=== PATIENT | male | born 1955 | race Caucasian/White ===

== ENCOUNTER 2024-11-24 11:22 | Inpatient (IN) | payer MEDICARE, SELFPAY ==
[2024-11-24] VITALS (7 sets, daily range): BP systolic 130–164; BP diastolic 67–89; PULSE 67–236; RESP 16–31; TEMP 36.4–37.1; O2SAT 95–97
--- NOTE | ~2024-11-24 | NM_ITS ---
EXAMINATION: NM charles stress w perfusion DATE: 11/26/2024 12:15 INDICATION: Elevated troponin TECHNIQUE: Rest images were obtained following intravenous administration of 9.9 mCi Tc99m tetrofosmi n (Myoview). The patient was infused intravenously with Lexiscan (Regadenoson). Then, 31.2 mCi Tc99m tetrofosmin (Myoview) was administered intravenously, and stress images were obtained. Data was recon structed into short axis and horizontal and vertical long axis SPECT images. Gated SPECT images were also obtained. COMPARISON: None. FINDINGS: There is no definite reversible or fixed perfusion abnormality to suggest ischemia or infar ction. There is normal left ventricular chamber size, wall motion and ejection fraction. Left ventr icular ejection fraction measures >70%. IMPRESSION: 1. Normal myocardial perfusion at rest and during stress. 2. Left ventricular ejection fraction measuring >70%. Reviewed, dictated and finalized at location B. RY MIXER
--- NOTE | ~2024-11-24 | CT_ITS ---
Non-contrast Head CT History: Status post fall Technique: Axial non-contrast imaging of the brain was performed. Dose reduction technique was used on this scan by utilizing automated exposure control and iterative reconstruction technique. The dose -length product (DLP) was 605.33 mGy-cm. Findings: There is no evidence of intracranial hemorrhage, mass lesion, or acute infarct. Brain par enchyma appears normal. The ventricles and subarachnoid spaces are normal in size. The calvarium ap pears normal. The visualized paranasal sinuses and mastoid air cells are clear. Impression: No significant abnormality seen. Reviewed, dictated and finalized at location . 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
--- NOTE | ~2024-11-24 | CT_ITS ---
Noncontrast CT scan of the cervical spine Technique: Multiple contiguous axial [address] images of the cervical spine were obtained and rec onstructed in 2D sagittal and coronal planes on the acquisition scanner. Dose reduction technique was used on this scan by utilizing automated exposure control, adjustment of the mA and/or kV according to patient size. The dose-length product (DLP) was 443.93 mGy-cm. Clinical History: Pain Findings: No fractures or dislocations. There is minimal reversal normal cervical lordosis. There is moderate to advanced degenerative disc narrowing at C4-C5, C5-C6, and C6-C7. There is scattered face t joint degenerative changes throughout the cervical spine. Probable minimal right neural foraminal n arrowing at C4-C5. There is bilateral neural foraminal narrowing at C5-C6, right worse than left. The re is bilateral neural foraminal narrowing at C6-C7. No prevertebral soft tissue swelling. Impression: No fracture or subluxation of the cervical spine. Degenerative change, as above. Reviewed, dictated and finalized at location . 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 Degenerative change, as above.
--- NOTE | ~2024-11-24 | MR_ITS ---
EXAMINATION: MR brain/brain stem wo con DATE: 11/26/2024 07:23 INDICATION: Altered mental status. TECHNIQUE: Magnetic resonance imaging (MRI) of the brain and brainstem was performed without intraven ous contrast. COMPARISON: Head CT 11/24/2024 FINDINGS: There is an empty sella. There is no intracranial hemorrhage, acute infarction, or abnormal intracranial mass lesion. The ventricles are normal in size. The paranasal sinuses are clear. The or bits are normal. There are trace bilateral mastoid effusions. IMPRESSION: 1. Empty sella. Reviewed, dictated and finalized at location [] ERNMAKER BENCH IMPRESSION: 1. Empty sella.
--- NOTE | ~2024-11-24 | XR_ITS ---
EXAMINATION: XR chest 1V Exam Date/Time: 11/24/2024 14:50 SILVERER HISTORY: AMS Comparison: None. RESULT: Lines, tubes, and devices: None. Lungs and pleura: Senescent change. Streaky bibasilar opacities, greater in the left lower lung. Mil d left costophrenic angle blunting. Cardiomediastinal silhouette: Stable. Other: No acute osseous or upper abdominal finding. IMPRESSION: Subsegmental bibasilar atelectasis/consolidation. Possible small left pleural effusion. Reviewed, dictated and finalized at location K. ERER IMPRESSION: Subsegmental bibasilar atelectasis/consolidation. Possible small left pleural e ffusion.
--- NOTE | 2024-11-24 13:27 | ECG_ITS ---
Test Date: 2024-11-24 14:27:02 Measurements Intervals [place] Rate: 78 P: 40 [place]: 144 QRS: -49 QRSD: 102 T: 32 QT: 336 QTc: 384 Interpretive Statements SINUS RHYTHM WITH OCCASIONAL VENTRICULAR PREMATURE COMPLEXES MARKED LEFT AXIS DEVIATION [QRS AXIS < -30] MINIMAL VOLTAGE CRITERIA FOR LVH, CONSIDER NORMAL VARIANT [MEETS CRITERIA IN ONE OF: R(aVL), S(V1), R(V5), R(V5/V6)+S(V1)] POSSIBLE ANTERIOR MYOCARDIAL INFARCTION , PROBABLY OLD [30 ms Q WAVE IN V3/V4, OR R < 0.2 mV IN V4] No previous ECG available for comparison Electronically Signed On 11-24-2024 22:42:03 [employer] by Ayleen Bradford M.D.
--- NOTE | 2024-11-24 13:27 | ED_ITS ---
HPI - Fall General Chief Complaint: Fall <Ann Thompson PA-C - Last Filed: 11/26/24 18:19> Stated Complaint: GLF, hit head no blood thinner <Ann Thompson PA-C - Last Filed: 11/26/24 18:19> Time Seen by Provider: 11/24/24 14:42 <Ann Thompson PA-C - Last Filed: 11/26/24 18:19> Focused HPI: 69 y/o Male presents emergency department with son at bedside for altered mental status and ground level fall. Patient is unable to provide history secondary to confusion. Patient's son at bedside states the patient went to local urgent care few days ago for a dental infection. He was started on antibiotics and naproxen. Since then he has become increasingly more confused and has had several falls. His last fall was this morning around 10:00 a.m. when he fell in his head and obtained a laceration to the left posterior scalp. He did not lose consciousness. He is not anticoagulated. The patient denies any complaints including headache, vision changes, focal numbness or weakness, chest pain or shortness of breath, cough or congestion, fever, dysuria or hematuria, abdominal pain GENERAL: Well-appearing, well-nourished, and in no acute distress. HEAD: Less than 0.5 cm laceration to the left posterior scalp, no active bleeding. CHEST: Clear to auscultation. ?No respiratory distress. HEART: Regular rate and rhythm.? NEURO: ?Alert and oriented x3. Patient screened in triage and initial orders placed.? ?Additional care and disposition to be based upon?diagnostic testing and treatment. <Ann Thompson PA-C - Last Filed: 11/26/24 18:19> History of Present Illness HPI Narrative: Agree with HPI. Currently thinks he is at a dental office. No history of dementia. Abrasion posterior head. No additional complaints other than poor oral intake since going the dentist and recent fall. <Arjun Vila MD - Last Filed: 11/24/24 21:11> Related Data Home Medications: Home Medications ?Medication ?Instructions ?Recorded ?Confirmed ?Last Taken ?Type acetaminophen 650 mg 650 mg PO DAILY 11/25/24 11/25/24 11/23/24 History tablet,extended release (Arthritis Pain Relief (acetaminophen) ER) amoxicillin 875 mg tablet 875 mg PO Q12H 11/25/24 11/25/24 11/23/24 14:00 History payazeta-pnxg-[id number] acid 400 1 tablet PO DAILY 11/25/24 11/25/24 11/23/24 History mcg-lycopene 300 mcg-ginkgo 120 mg tablet (One-A-Day Men's 50 Plus (with ginkgo)) <Ann Thompson PA-C - Last Filed: 11/26/24 18:19> Allergies/Adverse Reactions: Allergies Allergy/AdvReac Type Severity Reaction Status Date / Time No Known Allergies Allergy Verified 11/24/24 11:26 <Ann Thompson PA-C - Last Filed: 11/26/24 18:19> Review of Systems 2 Review of Systems: ROS unobtainable: Yes unobtainable due to mental status <Arjun Vila MD - Last Filed: 11/24/24 21:11> [facility] Past Medical History Medical History: Medical History (Updated 11/25/24 @ 18:02 by Juancho Bullard MD) Healthy adult male <Ann Thompson PA-C - Last Filed: 11/26/24 18:19> Surgical History Surgical History: Surgical History (Updated 11/24/24 @ 21:08 by Arjun Vila MD) No history of previous surgery <Ann Thompson PA-C - Last Filed: 11/26/24 18:19> Family History Family History: Family History (Updated 11/25/24 @ 03:07 by Ruba Vallecilol RN) Mother Lung cancer Father Congestive heart failure <Ann Thompson PA-C - Last Filed: 11/26/24 18:19> Social History Social History: Social History Smoking packs per day: 1 Smoking cigarettes per day: 20.0 Years smoked: 50 Smoking pack-years: 50.00 Smoking status: Current every day smoker Tobacco type: cigarettes Alcohol intake: never Substance use: never Do You Feel Safe in your Home?: Yes Lack of Transportation: No Lack of Food: Never True Current Housing: I Have Housing Concerned About Future Housing: No Difficulty Paying Gas/Electric Bills: No Difficulty Paying for Meds: No Currently Unemployed: No Education: Associate Degree Difficulty w/ Childcare or Family Care: No Spiritual care concerns: No <Ann Thompson PA-C - Last Filed: 11/26/24 18:19> Exam 2 Narrative: GENERAL: Well-appearing, well-nourished, and in no acute distress. HEAD: Normocephalic, abrasion posterior scalp. ENT: Mucous membranes moist. NECK: Supple. CHEST: Clear to auscultation. No respiratory distress. HEART: Regular rate and rhythm. Normal peripheral pulses. ABDOMEN: Soft, nontender, nondistended. EXTREMITIES: Normal range of motion. No edema. SKIN: Warm, dry, no rash. NEURO: Alert and oriented x2. PSYCH: Normal mood and affect. <Arjun Vila MD - Last Filed: 11/24/24 21:11> Course Course Emergency Course: Mental status improving with IV fluid. Troponin elevated. Admit for observation. <Arjun Vila MD - Last Filed: 11/24/24 21:11> Vital Signs Vital signs: Vital Signs Temperature 97.6 F 11/24/24 11:25 Pulse Rate 90 11/24/24 11:25 Respiratory Rate 16 11/24/24 11:25 Blood Pressure 145/69 H 11/24/24 11:25 Pulse Oximetry 97 11/24/24 11:25 Temperature 97.7 F 11/26/24 12:00 Pulse Rate 58 L 11/26/24 14:00 Respiratory Rate 26 H 11/26/24 12:00 Blood Pressure 138/61 11/26/24 12:00 Pulse Oximetry 90 11/26/24 12:00 Oxygen Delivery Room Air 11/26/24 12:00 <Ann Thompson PA-C - Last Filed: 11/26/24 18:19> Vital Signs Temperature 97.6 F 11/24/24 11:25 Pulse Rate 90 11/24/24 11:25 Respiratory Rate 16 11/24/24 11:25 Blood Pressure 145/69 H 11/24/24 11:25 Pulse Oximetry 97 11/24/24 11:25 Temperature 97.7 F 11/26/24 12:00 Pulse Rate 58 L 11/26/24 14:00 Respiratory Rate 26 H 11/26/24 12:00 Blood Pressure 138/61 11/26/24 12:00 Pulse Oximetry 90 11/26/24 12:00 Oxygen Delivery Room Air 11/26/24 12:00 <Arjun Vila MD - Last Filed: 11/24/24 21:11> MDM - Fall Lab Data Result diagrams: 11/26/24 03:46 11/26/24 03:46 <Ann Thompson PA-C - Last Filed: 11/26/24 18:19> Labs: Lab Results 11/24/24 11/24/24 11/24/24 Range/Units 14:30 15:15 16:39 WBC 10.6 H (4.5-10.0) K/mm3 RBC 4.04 L (4.6-6.20) M/mm3 Hgb 13.6 L (14.0-18.0) g/dL Hct 40.2 L (42.0-52.0) % MCV 99.5 (80-100) fl MCH 33.7 (26-34) pg MCHC 33.8 (32-36) g/dl RDW 12.9 (11.5-14.5) % Plt Count 299 (150-375) k/mm3 MPV 9.5 (7.4-10.4) fl Immature Gran % (Auto) 0.2 (0-0.5) % Neut % (Auto) 70.4 (45.5-73.1) % Lymph % (Auto) 14.7 L (18.3-44.2) % [place] % (Auto) 13.8 H (2.6-8.5) % Eos % (Auto) 0.4 (0-4.4) % Baso % (Auto) 0.5 (0.2-1.2) % Lymph # (Auto) 1.55 (0.9-3.2) K/mm3 [place] # (Auto) 1.5 H (0.1-0.6) K/mm3 Eos # (Auto) 0.0 (0-0.3) K/mm3 Baso # (Auto) 0.1 (0.0-0.1) K/mm3 Abs Immat Gran (auto) 0.02 (0.00-0.031) K/mm3 Absolute Neuts (auto) 7.5 H (1.3-6.7) K/mm3 Absolute Nucleated RBC 0.000 (0.0-0.012) K/mm3 Nucleated RBC % 0.0 (0.0-0.2) % PT 14.6 (11.1-14.7) Seconds INR 1.1 APTT 33.1 (22.3-36.8) Seconds Sodium 138 (137-145) mmol/L Potassium 3.7 (3.4-5.0) mmol/L Chloride 108 H (98-107) mmol/L Carbon Dioxide 27 (22-30) mmol/L Anion Gap 3 L (4-12) mmol/L BUN 17 (9-20) mg/dL Creatinine 1.00 (0.7-1.3) mg/dL Estim Creat Clear Calc Not Reportable Estimated GFR > 60 (59 - ) Glucose 95 (65-110) mg/dL Calcium 9.6 (8.4-10.2) mg/dL Total Bilirubin 0.9 (0.2-1.3) mg/dL AST 19 (17-59) U/L ALT 17 (6-50) U/L Alkaline Phosphatase 83 (38-126) U/L Total Creatine Kinase 90 (55-170) U/L Troponin I 0.038 H* (0.000-0.034) ng/mL C-Reactive Protein (<1.0) mg/dL Total Protein 8.0 (6.3-8.2) g/dL Albumin 4.1 (3.5-5.1) g/dL Vitamin B12 (239-931) pg/mL Methylmalonic Acid Vitamin D 25-Hydroxy ng/mL Folate (2.76->20) ng/mL Procalcitonin ng/mL TSH 0.242 L (0.465-4.680) uIU/mL Free T4 (0.78-2.19) ng/dL Urine Color Dark yellow (Yellow) Urine Appearance Clear (Clear) Urine pH 5.5 (5.0-9.0) Ur Specific [place] 1.025 (1.001-1.035) Urine Protein Trace (Negative) mg/dL Urine Glucose (UA) Negative (Negative) mg/dL Urine Ketones 1+ H (Negative) mg/dL Ur Blood (Man) Negative (Negative) Urine Nitrate Negative (Negative) Urine Bilirubin Negative (Negative) Urine Urobilinogen 2.0 H (<2.0) mg/dL Leukocyte Esterase Rfl Negative (Negative) SCOTT/UL Urine RBC 0-2 (0-2) /hpf Urine WBC 0-5 (0-3) /hpf Ur Squamous Epith Cells None seen (Few) /hpf Urine Bacteria None seen /hpf Urine Casts 0-2 Urine Opiates Screen Negative (Negative) Urine Methadone Screen Negative (Negative) Ur Barbiturates Screen Negative (Negative) Ur Phencyclidine Scrn Negative (Negative) Ur Amphetamine Screen Negative (Negative) U Benzodiazepines Scrn Negative (Negative) Urine Cocaine Screen Negative (Negative) U Cannabinoids Screen Negative (Negative) Influenza A (RT-PCR) Negative (Negative) Influenza B (RT-PCR) Negative (Negative) RSV (RT-PCR) Negative (Negative) SARS-CoV-2 RNA (RT-PCR) Negative (Negative) 11/24/24 11/24/24 11/25/24 Range/Units 17:37 20:39 04:31 WBC (4.5-10.0) K/mm3 RBC (4.6-6.20) M/mm3 Hgb (14.0-18.0) g/dL Hct (42.0-52.0) % MCV (80-100) fl MCH (26-34) pg MCHC (32-36) g/dl RDW (11.5-14.5) % Plt Count (150-375) k/mm3 MPV (7.4-10.4) fl Immature Gran % (Auto) (0-0.5) % Neut % (Auto) (45.5-73.1) % Lymph % (Auto) (18.3-44.2) % [place] % (Auto) (2.6-8.5) % Eos % (Auto) (0-4.4) % Baso % (Auto) (0.2-1.2) % Lymph # (Auto) (0.9-3.2) K/mm3 [place] # (Auto) (0.1-0.6) K/mm3 Eos # (Auto) (0-0.3) K/mm3 Baso # (Auto) (0.0-0.1) K/mm3 Abs Immat Gran (auto) (0.00-0.031) K/mm3 Absolute Neuts (auto) (1.3-6.7) K/mm3 Absolute Nucleated RBC (0.0-0.012) K/mm3 Nucleated RBC % (0.0-0.2) % PT (11.1-14.7) Seconds INR APTT (22.3-36.8) Seconds Sodium (137-145) mmol/L Potassium (3.4-5.0) mmol/L Chloride (98-107) mmol/L Carbon Dioxide (22-30) mmol/L Anion Gap (4-12) mmol/L BUN (9-20) mg/dL Creatinine (0.7-1.3) mg/dL Estim Creat Clear Calc Estimated GFR (59 - ) Glucose (65-110) mg/dL Calcium (8.4-10.2) mg/dL Total Bilirubin (0.2-1.3) mg/dL AST (17-59) U/L ALT (6-50) U/L Alkaline Phosphatase (38-126) U/L Total Creatine Kinase (55-170) U/L Troponin I 0.041 H* 0.043 H* 0.030 D (0.000-0.034) ng/mL C-Reactive Protein (<1.0) mg/dL Total Protein (6.3-8.2) g/dL Albumin (3.5-5.1) g/dL Vitamin B12 (239-931) pg/mL Methylmalonic Acid Vitamin D 25-Hydroxy ng/mL Folate (2.76->20) ng/mL Procalcitonin ng/mL TSH (0.465-4.680) uIU/mL Free T4 (0.78-2.19) ng/dL Urine Color (Yellow) Urine Appearance (Clear) Urine pH (5.0-9.0) Ur Specific [place] (1.001-1.035) Urine Protein (Negative) mg/dL Urine Glucose (UA) (Negative) mg/dL Urine Ketones (Negative) mg/dL Ur Blood (Man) (Negative) Urine Nitrate (Negative) Urine Bilirubin (Negative) Urine Urobilinogen (<2.0) mg/dL Leukocyte Esterase Rfl (Negative) SCOTT/UL Urine RBC (0-2) /hpf Urine WBC (0-3) /hpf Ur Squamous Epith Cells (Few) /hpf Urine Bacteria /hpf Urine Casts Urine Opiates Screen (Negative) Urine Methadone Screen (Negative) Ur Barbiturates Screen (Negative) Ur Phencyclidine Scrn (Negative) Ur Amphetamine Screen (Negative) U Benzodiazepines Scrn (Negative) Urine Cocaine Screen (Negative) U Cannabinoids Screen (Negative) Influenza A (RT-PCR) (Negative) Influenza B (RT-PCR) (Negative) RSV (RT-PCR) (Negative) SARS-CoV-2 RNA (RT-PCR) (Negative) 11/25/24 11/25/24 Range/Units 08:42 08:46 WBC 8.7 (4.5-10.0) K/mm3 RBC 3.49 L (4.6-6.20) M/mm3 Hgb 11.8 L (14.0-18.0) g/dL Hct 34.6 L (42.0-52.0) % MCV 99.1 (80-100) fl MCH 33.8 (26-34) pg MCHC 34.1 (32-36) g/dl RDW 12.5 (11.5-14.5) % Plt Count 253 (150-375) k/mm3 MPV 9.8 (7.4-10.4) fl Immature Gran % (Auto) 0.2 (0-0.5) % Neut % (Auto) 55.6 (45.5-73.1) % Lymph % (Auto) 25.5 (18.3-44.2) % [place] % (Auto) 14.3 H (2.6-8.5) % Eos % (Auto) 3.7 (0-4.4) % Baso % (Auto) 0.7 (0.2-1.2) % Lymph # (Auto) 2.21 (0.9-3.2) K/mm3 [place] # (Auto) 1.2 H (0.1-0.6) K/mm3 Eos # (Auto) 0.3 (0-0.3) K/mm3 Baso # (Auto) 0.1 (0.0-0.1) K/mm3 Abs Immat Gran (auto) 0.02 (0.00-0.031) K/mm3 Absolute Neuts (auto) 4.8 (1.3-6.7) K/mm3 Absolute Nucleated RBC 0.000 (0.0-0.012) K/mm3 Nucleated RBC % 0.0 (0.0-0.2) % PT (11.1-14.7) Seconds INR APTT (22.3-36.8) Seconds Sodium 135 L (137-145) mmol/L Potassium 3.8 (3.4-5.0) mmol/L Chloride 108 H (98-107) mmol/L Carbon Dioxide 27 (22-30) mmol/L Anion Gap 0 L (4-12) mmol/L BUN 14 (9-20) mg/dL Creatinine 0.80 (0.7-1.3) mg/dL Estim Creat Clear Calc 71 Estimated GFR > 60 (59 - ) Glucose 104 (65-110) mg/dL Calcium 8.7 (8.4-10.2) mg/dL Total Bilirubin 0.8 (0.2-1.3) mg/dL AST 23 (17-59) U/L ALT 16 (6-50) U/L Alkaline Phosphatase 60 (38-126) U/L Total Creatine Kinase (55-170) U/L Troponin I (0.000-0.034) ng/mL C-Reactive Protein 0.6 (<1.0) mg/dL Total Protein 6.0 L (6.3-8.2) g/dL Albumin 3.3 L (3.5-5.1) g/dL Vitamin B12 259.0 (239-931) pg/mL Methylmalonic Acid Pending Vitamin D 25-Hydroxy 24.3 ng/mL Folate 18.7 (2.76->20) ng/mL Procalcitonin 0.1 ng/mL TSH (0.465-4.680) uIU/mL Free T4 1.29 (0.78-2.19) ng/dL Urine Color (Yellow) Urine Appearance (Clear) Urine pH (5.0-9.0) Ur Specific [place] (1.001-1.035) Urine Protein (Negative) mg/dL Urine Glucose (UA) (Negative) mg/dL Urine Ketones (Negative) mg/dL Ur Blood (Man) (Negative) Urine Nitrate (Negative) Urine Bilirubin (Negative) Urine Urobilinogen (<2.0) mg/dL Leukocyte Esterase Rfl (Negative) SCOTT/UL Urine RBC (0-2) /hpf Urine WBC (0-3) /hpf Ur Squamous Epith Cells (Few) /hpf Urine Bacteria /hpf Urine Casts Urine Opiates Screen (Negative) Urine Methadone Screen (Negative) Ur Barbiturates Screen (Negative) Ur Phencyclidine Scrn (Negative) Ur Amphetamine Screen (Negative) U Benzodiazepines Scrn (Negative) Urine Cocaine Screen (Negative) U Cannabinoids Screen (Negative) Influenza A (RT-PCR) (Negative) Influenza B (RT-PCR) (Negative) RSV (RT-PCR) (Negative) SARS-CoV-2 RNA (RT-PCR) (Negative) <Ann Thompson PA-C - Last Filed: 11/26/24 18:19> Lab Results 11/24/24 11/24/24 11/24/24 Range/Units 14:30 15:15 16:39 WBC 10.6 H (4.5-10.0) K/mm3 RBC 4.04 L (4.6-6.20) M/mm3 Hgb 13.6 L (14.0-18.0) g/dL Hct 40.2 L (42.0-52.0) % MCV 99.5 (80-100) fl MCH 33.7 (26-34) pg MCHC 33.8 (32-36) g/dl RDW 12.9 (11.5-14.5) % Plt Count 299 (150-375) k/mm3 MPV 9.5 (7.4-10.4) fl Immature Gran % (Auto) 0.2 (0-0.5) % Neut % (Auto) 70.4 (45.5-73.1) % Lymph % (Auto) 14.7 L (18.3-44.2) % [place] % (Auto) 13.8 H (2.6-8.5) % Eos % (Auto) 0.4 (0-4.4) % Baso % (Auto) 0.5 (0.2-1.2) % Lymph # (Auto) 1.55 (0.9-3.2) K/mm3 [place] # (Auto) 1.5 H (0.1-0.6) K/mm3 Eos # (Auto) 0.0 (0-0.3) K/mm3 Baso # (Auto) 0.1 (0.0-0.1) K/mm3 Abs Immat Gran (auto) 0.02 (0.00-0.031) K/mm3 Absolute Neuts (auto) 7.5 H (1.3-6.7) K/mm3 Absolute Nucleated RBC 0.000 (0.0-0.012) K/mm3 Nucleated RBC % 0.0 (0.0-0.2) % PT 14.6 (11.1-14.7) Seconds INR 1.1 APTT 33.1 (22.3-36.8) Seconds Sodium 138 (137-145) mmol/L Potassium 3.7 (3.4-5.0) mmol/L Chloride 108 H (98-107) mmol/L Carbon Dioxide 27 (22-30) mmol/L Anion Gap 3 L (4-12) mmol/L BUN 17 (9-20) mg/dL Creatinine 1.00 (0.7-1.3) mg/dL Estim Creat Clear Calc Not Reportable Estimated GFR > 60 (59 - ) Glucose 95 (65-110) mg/dL Calcium 9.6 (8.4-10.2) mg/dL Total Bilirubin 0.9 (0.2-1.3) mg/dL AST 19 (17-59) U/L ALT 17 (6-50) U/L Alkaline Phosphatase 83 (38-126) U/L Total Creatine Kinase 90 (55-170) U/L Troponin I 0.038 H* (0.000-0.034) ng/mL C-Reactive Protein (<1.0) mg/dL Total Protein 8.0 (6.3-8.2) g/dL Albumin 4.1 (3.5-5.1) g/dL Vitamin B12 (239-931) pg/mL Methylmalonic Acid Vitamin D 25-Hydroxy ng/mL Folate (2.76->20) ng/mL Procalcitonin ng/mL TSH 0.242 L (0.465-4.680) uIU/mL Free T4 (0.78-2.19) ng/dL Urine Color Dark yellow (Yellow) Urine Appearance Clear (Clear) Urine pH 5.5 (5.0-9.0) Ur Specific [place] 1.025 (1.001-1.035) Urine Protein Trace (Negative) mg/dL Urine Glucose (UA) Negative (Negative) mg/dL Urine Ketones 1+ H (Negative) mg/dL Ur Blood (Man) Negative (Negative) Urine Nitrate Negative (Negative) Urine Bilirubin Negative (Negative) Urine Urobilinogen 2.0 H (<2.0) mg/dL Leukocyte Esterase Rfl Negative (Negative) SCOTT/UL Urine RBC 0-2 (0-2) /hpf Urine WBC 0-5 (0-3) /hpf Ur Squamous Epith Cells None seen (Few) /hpf Urine Bacteria None seen /hpf Urine Casts 0-2 Urine Opiates Screen Negative (Negative) Urine Methadone Screen Negative (Negative) Ur Barbiturates Screen Negative (Negative) Ur Phencyclidine Scrn Negative (Negative) Ur Amphetamine Screen Negative (Negative) U Benzodiazepines Scrn Negative (Negative) Urine Cocaine Screen Negative (Negative) U Cannabinoids Screen Negative (Negative) Influenza A (RT-PCR) Negative (Negative) Influenza B (RT-PCR) Negative (Negative) RSV (RT-PCR) Negative (Negative) SARS-CoV-2 RNA (RT-PCR) Negative (Negative) 11/24/24 11/24/24 11/25/24 Range/Units 17:37 20:39 04:31 WBC (4.5-10.0) K/mm3 RBC (4.6-6.20) M/mm3 Hgb (14.0-18.0) g/dL Hct (42.0-52.0) % MCV (80-100) fl MCH (26-34) pg MCHC (32-36) g/dl RDW (11.5-14.5) % Plt Count (150-375) k/mm3 MPV (7.4-10.4) fl Immature Gran % (Auto) (0-0.5) % Neut % (Auto) (45.5-73.1) % Lymph % (Auto) (18.3-44.2) % [place] % (Auto) (2.6-8.5) % Eos % (Auto) (0-4.4) % Baso % (Auto) (0.2-1.2) % Lymph # (Auto) (0.9-3.2) K/mm3 [place] # (Auto) (0.1-0.6) K/mm3 Eos # (Auto) (0-0.3) K/mm3 Baso # (Auto) (0.0-0.1) K/mm3 Abs Immat Gran (auto) (0.00-0.031) K/mm3 Absolute Neuts (auto) (1.3-6.7) K/mm3 Absolute Nucleated RBC (0.0-0.012) K/mm3 Nucleated RBC % (0.0-0.2) % PT (11.1-14.7) Seconds INR APTT (22.3-36.8) Seconds Sodium (137-145) mmol/L Potassium (3.4-5.0) mmol/L Chloride (98-107) mmol/L Carbon Dioxide (22-30) mmol/L Anion Gap (4-12) mmol/L BUN (9-20) mg/dL Creatinine (0.7-1.3) mg/dL Estim Creat Clear Calc Estimated GFR (59 - ) Glucose (65-110) mg/dL Calcium (8.4-10.2) mg/dL Total Bilirubin (0.2-1.3) mg/dL AST (17-59) U/L ALT (6-50) U/L Alkaline Phosphatase (38-126) U/L Total Creatine Kinase (55-170) U/L Troponin I 0.041 H* 0.043 H* 0.030 D (0.000-0.034) ng/mL C-Reactive Protein (<1.0) mg/dL Total Protein (6.3-8.2) g/dL Albumin (3.5-5.1) g/dL Vitamin B12 (239-931) pg/mL Methylmalonic Acid Vitamin D 25-Hydroxy ng/mL Folate (2.76->20) ng/mL Procalcitonin ng/mL TSH (0.465-4.680) uIU/mL Free T4 (0.78-2.19) ng/dL Urine Color (Yellow) Urine Appearance (Clear) Urine pH (5.0-9.0) Ur Specific [place] (1.001-1.035) Urine Protein (Negative) mg/dL Urine Glucose (UA) (Negative) mg/dL Urine Ketones (Negative) mg/dL Ur Blood (Man) (Negative) Urine Nitrate (Negative) Urine Bilirubin (Negative) Urine Urobilinogen (<2.0) mg/dL Leukocyte Esterase Rfl (Negative) SCOTT/UL Urine RBC (0-2) /hpf Urine WBC (0-3) /hpf Ur Squamous Epith Cells (Few) /hpf Urine Bacteria /hpf Urine Casts Urine Opiates Screen (Negative) Urine Methadone Screen (Negative) Ur Barbiturates Screen (Negative) Ur Phencyclidine Scrn (Negative) Ur Amphetamine Screen (Negative) U Benzodiazepines Scrn (Negative) Urine Cocaine Screen (Negative) U Cannabinoids Screen (Negative) Influenza A (RT-PCR) (Negative) Influenza B (RT-PCR) (Negative) RSV (RT-PCR) (Negative) SARS-CoV-2 RNA (RT-PCR) (Negative) 11/25/24 11/25/24 Range/Units 08:42 08:46 WBC 8.7 (4.5-10.0) K/mm3 RBC 3.49 L (4.6-6.20) M/mm3 Hgb 11.8 L (14.0-18.0) g/dL Hct 34.6 L (42.0-52.0) % MCV 99.1 (80-100) fl MCH 33.8 (26-34) pg MCHC 34.1 (32-36) g/dl RDW 12.5 (11.5-14.5) % Plt Count 253 (150-375) k/mm3 MPV 9.8 (7.4-10.4) fl Immature Gran % (Auto) 0.2 (0-0.5) % Neut % (Auto) 55.6 (45.5-73.1) % Lymph % (Auto) 25.5 (18.3-44.2) % [place] % (Auto) 14.3 H (2.6-8.5) % Eos % (Auto) 3.7 (0-4.4) % Baso % (Auto) 0.7 (0.2-1.2) % Lymph # (Auto) 2.21 (0.9-3.2) K/mm3 [place] # (Auto) 1.2 H (0.1-0.6) K/mm3 Eos # (Auto) 0.3 (0-0.3) K/mm3 Baso # (Auto) 0.1 (0.0-0.1) K/mm3 Abs Immat Gran (auto) 0.02 (0.00-0.031) K/mm3 Absolute Neuts (auto) 4.8 (1.3-6.7) K/mm3 Absolute Nucleated RBC 0.000 (0.0-0.012) K/mm3 Nucleated RBC % 0.0 (0.0-0.2) % PT (11.1-14.7) Seconds INR APTT (22.3-36.8) Seconds Sodium 135 L (137-145) mmol/L Potassium 3.8 (3.4-5.0) mmol/L Chloride 108 H (98-107) mmol/L Carbon Dioxide 27 (22-30) mmol/L Anion Gap 0 L (4-12) mmol/L BUN 14 (9-20) mg/dL Creatinine 0.80 (0.7-1.3) mg/dL Estim Creat Clear Calc 71 Estimated GFR > 60 (59 - ) Glucose 104 (65-110) mg/dL Calcium 8.7 (8.4-10.2) mg/dL Total Bilirubin 0.8 (0.2-1.3) mg/dL AST 23 (17-59) U/L ALT 16 (6-50) U/L Alkaline Phosphatase 60 (38-126) U/L Total Creatine Kinase (55-170) U/L Troponin I (0.000-0.034) ng/mL C-Reactive Protein 0.6 (<1.0) mg/dL Total Protein 6.0 L (6.3-8.2) g/dL Albumin 3.3 L (3.5-5.1) g/dL Vitamin B12 259.0 (239-931) pg/mL Methylmalonic Acid Pending Vitamin D 25-Hydroxy 24.3 ng/mL Folate 18.7 (2.76->20) ng/mL Procalcitonin 0.1 ng/mL TSH (0.465-4.680) uIU/mL Free T4 1.29 (0.78-2.19) ng/dL Urine Color (Yellow) Urine Appearance (Clear) Urine pH (5.0-9.0) Ur Specific [place] (1.001-1.035) Urine Protein (Negative) mg/dL Urine Glucose (UA) (Negative) mg/dL Urine Ketones (Negative) mg/dL Ur Blood (Man) (Negative) Urine Nitrate (Negative) Urine Bilirubin (Negative) Urine Urobilinogen (<2.0) mg/dL Leukocyte Esterase Rfl (Negative) SCOTT/UL Urine RBC (0-2) /hpf Urine WBC (0-3) /hpf Ur Squamous Epith Cells (Few) /hpf Urine Bacteria /hpf Urine Casts Urine Opiates Screen (Negative) Urine Methadone Screen (Negative) Ur Barbiturates Screen (Negative) Ur Phencyclidine Scrn (Negative) Ur Amphetamine Screen (Negative) U Benzodiazepines Scrn (Negative) Urine Cocaine Screen (Negative) U Cannabinoids Screen (Negative) Influenza A (RT-PCR) (Negative) Influenza B (RT-PCR) (Negative) RSV (RT-PCR) (Negative) SARS-CoV-2 RNA (RT-PCR) (Negative) <Arjun Vila MD - Last Filed: 11/24/24 21:11> Imaging Data Radiologist's impression: ITS Impressions Cervical Spine CT 11/24/24 12:18 Impression: No fracture or subluxation of the cervical spine. Degenerative change, as above. Head CT 11/24/24 12:19 Impression: No significant abnormality seen. Chest X-Ray 11/24/24 15:42 IMPRESSION: Subsegmental bibasilar atelectasis/consolidation. Possible small left pleural effusion. <Arjun Vila MD - Last Filed: 11/24/24 21:11> ECG Data EKG #1: ECG completion date: 11/24/24 <Arjun Vila MD - Last Filed: 11/24/24 21:11> ECG completion time: 15:43 <Arjun Vila MD - Last Filed: 11/24/24 21:11> EKG Interpretation: normal rate (66), sinus rhythm, non-specific ST changes, normal QRS, normal QT and left axis <Arjun Vila MD - Last Filed: 11/24/24 21:11> Discharge Plan Discharge Clinical Impression: Altered mental status, Elevated troponin <Ann Thompson PA-C - Last Filed: 11/26/24 18:19> Patient Disposition: Still a Patient <Ann Thompson PA-C - Last Filed: 11/26/24 18:19> Condition: Stable <Ann Thompson PA-C - Last Filed: 11/26/24 18:19>
[2024-11-24 14:38] LABS: Basophils Absolute Auto 0.1 K/mm3 (0.0-0.1); Basophils Percent Auto 0.5 % (0.2-1.2); Eosinophils Percent Auto 0.4 % (0-4.4); Hematocrit 40.2 % (42.0-52.0); Hemoglobin 13.6 g/dL (14.0-18.0); Immature Granulocyte Absolute 0.02 K/mm3 (0.00-0.031); Immature Granulocyte Percent A 0.2 % (0-0.5); Lymphocytes Absolute Auto 1.55 K/mm3 (0.9-3.2); Lymphocytes Percent Auto 14.7 % (18.3-44.2); Mean Corpuscular HGB Conc 33.8 g/dl (32-36); Mean Corpuscular Hemoglobin 33.7 pg (26-34); Mean Corpuscular Volume 99.5 fl (80-100); Mean Platelet Volume 9.5 fl (7.4-10.4); Monocytes Absolute Auto 1.5 K/mm3 (0.1-0.6); Monocytes Percent Auto 13.8 % (2.6-8.5); Neutrophils Absolute Auto 7.5 K/mm3 (1.3-6.7); Neutrophils Percent Auto 70.4 % (45.5-73.1); Platelet Count Result 299 k/mm3 (150-375); Red Blood Count 4.04 M/mm3 (4.6-6.20); Red Cell Distribution Width 12.9 % (11.5-14.5); White Blood Count 10.6 K/mm3 (4.5-10.0)
[2024-11-24 14:49] LABS: INR 1.1; Prothrombin Time 14.6 Seconds (11.1-14.7)
[2024-11-24 14:50] LABS: Partial Thromboplastin Time 33.1 Seconds (22.3-36.8)
[2024-11-24 14:51] LABS: Alanine Aminotransferase 17 U/L (6-50); Albumin Level 4.1 g/dL (3.5-5.1); Alkaline Phosphatase 83 U/L (38-126); Anion Gap 3 mmol/L (4-12); Aspartate Amino Transferase 19 U/L (17-59); Bilirubin,Total 0.9 mg/dL (0.2-1.3); Blood Urea Nitrogen 17 mg/dL (9-20); Calcium 9.6 mg/dL (8.4-10.2); Carbon Dioxide 27 mmol/L (22-30); Chloride 108 mmol/L (98-107); Estimated Glomerular Filt Rate > 60; Glucose 95 mg/dL (65-110); Potassium 3.7 mmol/L (3.4-5.0); Sodium 138 mmol/L (137-145)
[2024-11-24 15:11] LABS: Creatine Kinase 90 U/L (55-170); Troponin I 0.038 ng/mL (0.000-0.034)
--- NOTE | 2024-11-24 15:16 | ECG_ITS ---
Test Date: 2024-11-24 15:43:03 Measurements Intervals [place] Rate: 66 P: 25 TN: 152 QRS: -42 QRSD: 113 T: 34 QT: 366 QTc: 385 Interpretive Statements SINUS RHYTHM LEFT AXIS DEVIATION [QRS AXIS < -30] POSSIBLE ANTERIOR MYOCARDIAL INFARCTION , OF INDETERMINATE AGE [30 ms Q WAVE IN V3/V4, OR R < 0.2 mV IN V4] Compared to ECG 11/24/2024 14:27:02 Ventricular premature complex(es) no longer present Myocardial infarct finding still present Electronically Signed On 11-24-2024 22:40:28 CHRONIC DISEASE EPIDEMIOLOGIST by Ayleen Bradford M.D.
[2024-11-24 15:19] LABS: Thyroid Stimulating Hormone 0.242 uIU/mL (0.465-4.680)
--- NOTE | 2024-11-24 15:30 | PC.NURSE ---
ONIEL Hardy notified of pt. elevated troponin and that pt. will need a room with a monitor. Pt. placed on portable utility worker forge d/t no open monitored rooms at this time. MD Vila aware.
[2024-11-24] MEDS: SODIUM CHLORIDE 0.9% IV 1,000 ML 999 ML IV CONT (15:54)
[2024-11-24 16:06] LABS: Influenza A QL RT-PCR Negative (Negative); Influenza B QL RT-PCR Negative (Negative); RSV RNA, RT-PCR Negative (Negative); SARS-CoV-2 RNA PCR Negative (Negative)
[2024-11-24 16:48] LABS: Add Urine Microscopic? YES; Appearance Urine Clear (Clear); Bacteria Urine None Seen /hpf; Bilirubin Urine Negative (Negative); Blood Urine Negative (Negative); Color Urine Dark Yellow (Yellow); Glucose Urine UA Negative (Negative); Ketones Urine 1+ mg/dL (Negative); Leukocyte Esterase Ur Negative LEU/UL (Negative); Nitrate Urine Negative (Negative); Non Pathogenic Casts 0-2; Protein Urine Trace mg/dL (Negative); RBC Urine 0-2 /hpf (0-2); Specific Grav Ur 1.025 (1.001-1.035); Squamous Epithelial Cell Urine None Seen /hpf (Few); WBC Urine 0-5 /hpf (0-3); pH Urine 5.5 (5.0-9.0)
--- NOTE | 2024-11-24 16:55 | P.HP_ITS ---
H&P: HPI History of Present Illness Date/Time: 11/24/24 16:55 Chief Complaint: Confused Narrative: 69-year-old male no past medical history, patient's states that he only goes to the dentist presents to the hospital with acute confusion. Per the the patient had a dental abscess on the 11/19/2024 and went to Urgent Care was started on antibiotics. Patient was complaining about pain with chewing so he was only taking in liquids and soups. Today he went to his dentist and had a scan of his face and found out that they were not able to do procedure today and that he would need root canal. The patient came home around 2:00 p.m. and went to bed. The states that this was very unusual for him. She states that he slept until next morning when he will work to his alarm clock. The had a sked him why his alarm clock was set in he states that he had to go to work. The states that he has been retired for about 15 years. Patient is A&O x4 in the bed, however he states that he has been practicing the answers. Patient denies all complaints Review of Systems Review of Systems: ROS unobtainable: Yes unobtainable due to mental status PMFSH Past Medical History Medical History (Updated 11/25/24 @ 03:02 by Sherri Gordon APRN) Healthy adult male Surgical History Surgical History (Updated 11/24/24 @ 21:08 by Arjun Vila MD) No history of previous surgery Family History Family History (Updated 11/25/24 @ 03:07 by Ruba Vallecillo RN) Mother Lung cancer Father Congestive heart failure Meds Home Medications and Allergies Allergies Allergy/AdvReac Type Severity Reaction Status Date / Time No Known Allergies Allergy Verified 11/24/24 11:26 Vital Signs Vital Signs - 24 hr 11/24/24 11:25 11/24/24 16:51 Temperature 97.6 F Pulse Rate 90 67 Respiratory Rate 16 21 H Blood Pressure 145/69 H 151/69 H Pulse Oximetry 97 95 Exam Narrative: General: well appearing, appears stated age. HEENT: normocephalic, atraumatic. Mucous membranes moist. EOMI, PERRLA, bilateral sclera anicteric, no conjunctival injection. Neck supple without JVD, lymphadenopathy, or bruit. Respiratory: clear to ascultation bilaterally. No rales/rhonic/wheezes. Cardiovascular: Regular rate and rhythm, normal S1-S2 upon ascultation. No murmurs, rubs, or clicks. PMI is nondisplaced, capillary refill less than 3 second. Abdomen: Soft, round, no pulsatile masses, nondistended and nontender. No rebound, no guarding. No CVA tenderness, no hepatosplenomegaly. Bowel sounds present to all four quadrants. No high pitch or tinkling sounds, resonant to percussion. Extremities: No cyanosis, clubbing, or edema present. Pulses are palpable 2/2. Active ROM to all four extremities. Neuro: Alert and orientated x 4. PERRLA. Cranial nerves 2-12 intact without focal deficit. Skin: Warm, dry, and intact, without rash, erythema, or lesion. Psych: pleasant, cooperative, normal speech, normal affect, no hallucinations, no dysarthia H&P: Results Labs Labs: Short CBC 11/24/24 Range/Units 14:30 WBC 10.6 H (4.5-10.0) K/mm3 Hgb 13.6 L (14.0-18.0) g/dL Hct 40.2 L (42.0-52.0) % Plt Count 299 (150-375) k/mm3 BMP 11/24/24 14:30 Sodium 138 Potassium 3.7 Chloride 108 H Carbon Dioxide 27 BUN 17 Creatinine 1.00 Glucose 95 Calcium 9.6 Cardiac Enzymes 11/24/24 Range/Units 14:30 Total Creatine Kinase 90 (55-170) U/L Troponin I 0.038 H* (0.000-0.034) ng/mL Liver Function 11/24/24 Range/Units 14:30 Total Bilirubin 0.9 (0.2-1.3) mg/dL AST 19 (17-59) U/L ALT 17 (6-50) U/L Alkaline Phosphatase 83 (38-126) U/L Albumin 4.1 (3.5-5.1) g/dL Assessment and Plan Assessment and plan (1) Altered mental status: Code(s): R41.82 - Altered mental status, unspecified Status: Acute Assessment and Plan: Head CT negative for acute process UA negative for acute infection Toxicology screen negative Influenza A/B RSV and COVID negative MRI brain pending Blood cultures pending (2) Elevated troponin: Code(s): R79.89 - Other specified abnormal findings of blood chemistry Status: Acute Assessment and Plan: Patient given aspirin in the emergency room. Trend troponins and EKGs (3) Dental abscess: Code(s): K04.7 - Periapical abscess without sinus Status: Acute Assessment and Plan: Previously treated with antibiotic IV Rocephin Quality VTE Prophylaxis VTE prophylaxis: mechanical ordered Hospitalist [facility] Advance Care Plan I have confirmed that the patient's Advanced Care Plan is present, code status is documented, or surrogate decision maker is listed in patient medical record.: Yes Medication Reconciliation I have utilized all available resources to obtain, update and review the patients current medications (includes all prescriptions, OTC, herbals, cannabis, and nutritional supplements).: Yes
[2024-11-24] MEDS: ASPIRIN 325 MG TABLET PO (17:06)
--- NOTE | 2024-11-24 17:19 | ECG_ITS ---
Test Date: 2024-11-24 22:12:19 Measurements Intervals [place] Rate: 57 P: 31 NV: 149 QRS: -42 QRSD: 111 T: 20 QT: 390 QTc: 380 Interpretive Statements SINUS BRADYCARDIA WITH ectopic supraventricular beats MARKED LEFT AXIS DEVIATION [QRS AXIS < -30] Poor R wave progression Compared to ECG 11/24/2024 15:43:03 PACs are new Electronically Signed On 11-24-2024 22:25:13 GUEST REQUEST RUNNER by Ayleen Bradford M.D.
--- NOTE | 2024-11-24 17:19 | PC.NURSE ---
Lab called to add on uds to urine already in lab.
[2024-11-24] MEDS: LACTATED RINGERS 1,000 ML 125 ML IV CONT (17:57)
[2024-11-24 18:10] LABS: Troponin I 0.041 ng/mL (0.000-0.034)
[2024-11-24 18:19] LABS: Amphetamine Screen Urine Negative (Negative); Barbiturate Screen Urine Negative (Negative); Benzodiazepines Screen Urine Negative (Negative); Cannabinoid Screen Urine Negative (Negative); Cocaine Screen Urine Negative (Negative); Methadone Screen Urine Negative (Negative); Opiate Screen Urine Negative (Negative); Phencyclidine Screen Urine Negative (Negative)
[2024-11-24 21:12] LABS: Troponin I 0.043 ng/mL (0.000-0.034)
--- NOTE | 2024-11-24 22:16 | PC.NURSE ---
Repeat EKG completed at 2211 and shown to hospitalist, Sherri Gordon at 2214. Hospitalist at bedside assessing pt. and speaking with pt. .
[2024-11-25] VITALS (14 sets, daily range): BP systolic 117–141; BP diastolic 52–84; PULSE 44–86; RESP 12–24; TEMP 36.5–37.3; O2SAT 92–97; BMI 26.3; BMI 28.1
[2024-11-25] MEDS: LACTATED RINGERS 1,000 ML 125 ML IV CONT ×2 (01:35→10:12)
--- NOTE | 2024-11-25 03:04 | ADMGEN ---
This patient, Daron Martinez, was admitted to [facility]. Patient/family oriented to hospital policies and general routines including ID bracelet, bed and alarms, visiting hours, pain management, procedures, bathroom and other care routines, personal items, smoking policy, room service/diet, and visiting hours. Information on how to activate the Rapid Response Team has been discussed. Patient/Family are encouraged to report perceived risks to care and to ask questions if they do not understand what they are told or what they should do.
[2024-11-25] MEDS: cefTRIAXone 2 GM/NS 100 ML 2 GM/100 ML BAG IVPB (03:48)
[2024-11-25 09:07] LABS: Basophils Absolute Auto 0.1 K/mm3 (0.0-0.1); Basophils Percent Auto 0.7 % (0.2-1.2); Eosinophils Absolute Auto 0.3 K/mm3 (0-0.3); Eosinophils Percent Auto 3.7 % (0-4.4); Hematocrit 34.6 % (42.0-52.0); Hemoglobin 11.8 g/dL (14.0-18.0); Immature Granulocyte Absolute 0.02 K/mm3 (0.00-0.031); Immature Granulocyte Percent A 0.2 % (0-0.5); Lymphocytes Absolute Auto 2.21 K/mm3 (0.9-3.2); Lymphocytes Percent Auto 25.5 % (18.3-44.2); Mean Corpuscular HGB Conc 34.1 g/dl (32-36); Mean Corpuscular Hemoglobin 33.8 pg (26-34); Mean Corpuscular Volume 99.1 fl (80-100); Mean Platelet Volume 9.8 fl (7.4-10.4); Monocytes Absolute Auto 1.2 K/mm3 (0.1-0.6); Monocytes Percent Auto 14.3 % (2.6-8.5); Neutrophils Absolute Auto 4.8 K/mm3 (1.3-6.7); Neutrophils Percent Auto 55.6 % (45.5-73.1); Platelet Count Result 253 k/mm3 (150-375); Red Blood Count 3.49 M/mm3 (4.6-6.20); Red Cell Distribution Width 12.5 % (11.5-14.5); White Blood Count 8.7 K/mm3 (4.5-10.0)
[2024-11-25 09:30] LABS: Alanine Aminotransferase 16 U/L (6-50); Albumin Level 3.3 g/dL (3.5-5.1); Alkaline Phosphatase 60 U/L (38-126); Anion Gap 0 mmol/L (4-12); Aspartate Amino Transferase 23 U/L (17-59); Bilirubin,Total 0.8 mg/dL (0.2-1.3); Blood Urea Nitrogen 14 mg/dL (9-20); CRP 0.6 mg/dL (<1.0); Calcium 8.7 mg/dL (8.4-10.2); Carbon Dioxide 27 mmol/L (22-30); Chloride 108 mmol/L (98-107); Estimated CRCL calculation 71 ml/min; Estimated Glomerular Filt Rate > 60; Glucose 104 mg/dL (65-110); Potassium 3.8 mmol/L (3.4-5.0); Sodium 135 mmol/L (137-145)
[2024-11-25 09:43] LABS: Procalcitonin 0.1 ng/mL
[2024-11-25 09:44] LABS: Free T4 Free Thyroxine 1.29 ng/dL (0.78-2.19); Vitamin D 25 Hydroxy 24.3 ng/mL
[2024-11-25] MEDS: ENOXAPARIN 40 MG/0.4 ML SYRINGE SUB-Q (09:51)
[2024-11-25 10:32] LABS: Folic Acid 18.7 ng/mL (2.76->20)
--- NOTE | 2024-11-25 17:48 | P.PNIM_ITS ---
Progress Note: A&P Assessment and Plan (1) Altered mental status: Code(s): R41.82 - Altered mental status, unspecified Status: Acute Assessment and Plan: Patient presents with confusion. Head CT negative for acute process UA negative for acute infection. PCT 0.1. TSH low at 0.24 but FT4 normal. B12 low end of normal. Folate normal. Vit D low as well. Toxicology screen negative. Influenza, RSV and COVID PCR negative MRI brain ordered. BCx NGTD Consider related to dental infection. Consider untreated GEORGIE with bradycardia. Consider global amnesia. Follow up on MRI brain. Check ammonia level. Apnea link tonight with ABG in the morning. Stop narcotics. Replace B12 and VitD. (2) Elevated troponin: Code(s): R79.89 - Other specified abnormal findings of blood chemistry Status: Acute Assessment and Plan: Troponin elevated to 0.43. EKG showing sinus rhythm with PVCs, LAD, LVH and possible old anterior KS. Repeat EKG showing similar findings. CXR showing subsegmental bibasilar atelectasis/consolidation and possible small left pleural effusion Patient given aspirin in the emergency room. Continue ASA. Check Echo Consider Lexiscan stress test in the morning. (3) Dental abscess: Code(s): K04.7 - Periapical abscess without sinus Status: Acute Assessment and Plan: Patient was previously treated with antibiotics (Amox) prior to admission with improvement. Started on IV Rocephin here. He has a follow up with dentist for definitive treatment. (4) Tobacco abuse: Code(s): Z72.0 - Tobacco use Status: Acute Assessment and Plan: Patient was educated about the benefits of smoking cessation. Plan DVT prophylaxis -Lovenox Code status -full Subjective Date/time seen: 11/25/24 17:48 Interval history: 69yo male with no significant medical hx but with tobacco abuse here for altered mental status and ongoing dental infection. Assuming care. Chart reviewed. The right jaw swelling is much better. He believes the amoxicillin is working. He did fall at home but states he did not have a syncopal episode but that he just ?lost my balance?. He did hit the back his head. No problems overnight. He is alert and oriented and able to provide accurate hx that is verified by family in the room. Exam Narrative: AF 99.2 141/55 57 24 94% ra Gen - NARD HEENT - no jaw line edema or pain Chest - CTA bilaterally, nml RR CV - RRR S1/S2. Tele showing bradycardia in the 40-50 range with PACs Abd - Soft, NT/ND, Positive BS Ext - No pedal edema Neuro - Alert and oriented. Nonfocal exam. Psych - Nml mood and affect Skin - Warm and dry Objective Data Vital Signs Vital Signs: Vital Signs - 24 hr 11/24/24 18:02 11/24/24 20:01 11/24/24 21:22 Temperature 98.8 F 98.8 F 98.8 F Pulse Rate 69 67 90 Respiratory Rate 21 H 20 19 Blood Pressure 164/89 H 130/67 153/83 H Pulse Oximetry 95 96 95 Oxygen Delivery 11/24/24 23:32 11/24/24 23:33 11/25/24 02:18 Temperature 98.5 F Pulse Rate 236 H 70 60 Respiratory Rate 22 H 31 H 13 Blood Pressure 155/86 H 155/86 H 117/84 Pulse Oximetry 97 95 95 Oxygen Delivery 11/25/24 02:58 11/25/24 04:00 11/25/24 04:00 Temperature 98.8 F Pulse Rate 58 L 55 L Respiratory Rate 20 Blood Pressure 137/69 Pulse Oximetry 96 Oxygen Delivery Room Air 11/25/24 06:00 11/25/24 06:33 11/25/24 08:00 Temperature 97.7 F 98.5 F Pulse Rate 66 65 86 Respiratory Rate 20 16 Blood Pressure 137/69 126/52 L Pulse Oximetry 96 92 Oxygen Delivery 11/25/24 08:00 11/25/24 08:00 11/25/24 10:00 Temperature Pulse Rate 46 L 56 L Respiratory Rate Blood Pressure Pulse Oximetry Oxygen Delivery Room Air 11/25/24 12:00 11/25/24 12:00 11/25/24 12:00 Temperature 98.9 F Pulse Rate 47 L 44 L Respiratory Rate 12 Blood Pressure 140/64 Pulse Oximetry 97 Oxygen Delivery Room Air 11/25/24 14:00 11/25/24 16:00 11/25/24 16:00 Temperature 99.2 F Pulse Rate 68 53 L Respiratory Rate 24 H Blood Pressure 141/55 H Pulse Oximetry 94 Oxygen Delivery Room Air 11/25/24 16:00 Temperature Pulse Rate 57 L Respiratory Rate Blood Pressure Pulse Oximetry Oxygen Delivery Intake/Output Intake/Output: Intake & Output 11/22/24 11/23/24 11/24/24 11/25/24 23:59 23:59 23:59 23:59 Intake Total 1000 2580 Output Total 90 Balance 910 2580 Meds/Results Medications: Active Medications Generic Name Dose Route Start Last Admin Trade Name Freq PRN Reason Stop Dose Admin Acetaminophen 650 mg 11/24/24 16:55 Acetaminophen 325 Mg Tablet PO Q4H PRN Mild Pain (1-3) or Fever Hydrocodone Bitart/Acetaminophen 1 tab 11/24/24 16:55 Hydrocodone/Acetaminophen (*Crx) 5-325 Mg Tablet PO Q4H PRN Pain Rated 4-6 Enoxaparin Sodium 40 mg 11/25/24 09:00 11/25/24 09:51 Enoxaparin 40 Mg/0.4 Ml Syringe SUB-Q 40 mg DAILY ZIA Administration Lactated Ringer's 1,000 mls @ 125 mls/hr 11/24/24 16:55 11/25/24 10:12 Lr - Lactated Ringers Iv IV CONT 125 mls/hr .Q8H ZIA Administration Ceftriaxone Sodium 2 gm in 100 mls @ 200 mls/hr 11/25/24 04:00 11/25/24 04:18 Rocephin 2 Gm/Ns 100 Ml IVPB Infused Q24H ZIA Infusion Ondansetron HCl 4 mg 11/24/24 16:55 Ondansetron Inj 4 Mg/2 Ml Vial IV PUSH Q4H PRN Nausea Radiology Results: ITS Impressions Cervical Spine CT 11/24/24 12:18 Impression: No fracture or subluxation of the cervical spine. Degenerative change, as above. Head CT 11/24/24 12:19 Impression: No significant abnormality seen. Chest X-Ray 11/24/24 15:42 IMPRESSION: Subsegmental bibasilar atelectasis/consolidation. Possible small left pleural effusion. Labs Labs: Laboratory Results - last 24 hr 11/24/24 11/24/24 11/24/24 16:39 17:37 20:39 WBC RBC Hgb Hct MCV MCH MCHC RDW Plt Count MPV Immature Gran % (Auto) Neut % (Auto) Lymph % (Auto) Castro % (Auto) Eos % (Auto) Baso % (Auto) Lymph # (Auto) Castro # (Auto) Eos # (Auto) Baso # (Auto) Abs Immat Gran (auto) Absolute Neuts (auto) Absolute Nucleated RBC Nucleated RBC % Sodium Potassium Chloride Carbon Dioxide Anion Gap BUN Creatinine Estim Creat Clear Calc Estimated GFR Glucose Calcium Total Bilirubin AST ALT Alkaline Phosphatase Troponin I 0.041 H* 0.043 H* C-Reactive Protein Total Protein Albumin Vitamin B12 Vitamin D 25-Hydroxy Folate Procalcitonin Free T4 Urine Opiates Screen Negative Urine Methadone Screen Negative Ur Barbiturates Screen Negative Ur Phencyclidine Scrn Negative Ur Amphetamine Screen Negative U Benzodiazepines Scrn Negative Urine Cocaine Screen Negative U Cannabinoids Screen Negative 11/25/24 11/25/24 04:31 08:46 WBC 8.7 RBC 3.49 L Hgb 11.8 L Hct 34.6 L MCV 99.1 MCH 33.8 MCHC 34.1 RDW 12.5 Plt Count 253 MPV 9.8 Immature Gran % (Auto) 0.2 Neut % (Auto) 55.6 Lymph % (Auto) 25.5 Castro % (Auto) 14.3 H Eos % (Auto) 3.7 Baso % (Auto) 0.7 Lymph # (Auto) 2.21 Castro # (Auto) 1.2 H Eos # (Auto) 0.3 Baso # (Auto) 0.1 Abs Immat Gran (auto) 0.02 Absolute Neuts (auto) 4.8 Absolute Nucleated RBC 0.000 Nucleated RBC % 0.0 Sodium 135 L Potassium 3.8 Chloride 108 H Carbon Dioxide 27 Anion Gap 0 L BUN 14 Creatinine 0.80 Estim Creat Clear Calc 71 Estimated GFR > 60 Glucose 104 Calcium 8.7 Total Bilirubin 0.8 AST 23 ALT 16 Alkaline Phosphatase 60 Troponin I 0.030 D C-Reactive Protein 0.6 Total Protein 6.0 L Albumin 3.3 L Vitamin B12 259.0 Vitamin D 25-Hydroxy 24.3 Folate 18.7 Procalcitonin 0.1 Free T4 1.29 Urine Opiates Screen Urine Methadone Screen Ur Barbiturates Screen Ur Phencyclidine Scrn Ur Amphetamine Screen U Benzodiazepines Scrn Urine Cocaine Screen U Cannabinoids Screen
[2024-11-25] MEDS: CYANOCOBALAMIN INJ 1,000 MCG/ML VIAL 1000 MCG IM (18:49)
[2024-11-25] MEDS: ASPIRIN 81 MG CHEWABLE TABLET PO (22:15)
[2024-11-26] VITALS (11 sets, daily range): BP systolic 118–143; BP diastolic 51–73; PULSE 42–82; RESP 14–26; TEMP 36.5–37.5; O2SAT 90–97
--- NOTE | 2024-11-26 | EST_ITS ---
Patient Info Name: Daron Martinez Age: 69 years : 1955 Gender: Male Ht: 68 in Wt: 184 lbs BSA: 2.02 m2 Exam Date: 11/26/2024 11:13 AM Exam Location: Echo Lab Patient Status: Inpatient Admit Date: 11/25/2024 Staff Ordering Physician: Juancho Bullard MD Attending Provider: Adam Noel MD Exercise Technologist: Candace Cruz RDCS Exam Type: CA stress charles w NM Study Info A regadenoson stress test was performed. Summary 1. ECG at baseline has IVCD, NSR with sinus arrhythmia and frequent PACs. 2. The ECG portion during pharmacological stress test is negative for ischemia. Frequent PACs and occ PVC seen. Protocol: Lexiscan Stress ECG Details Stage: REST Duration (min): 0 min : 51 sec HR (bpm): 53 SBP (mmHg): 154 DBP (mmHg): 80 Stage: REST Duration (min): 12 min : 31 sec HR (bpm): 64 SBP (mmHg): 154 DBP (mmHg): 80 Stage: STAGE 1 Duration (min): 1 min : 0 sec HR (bpm): 71 SBP (mmHg): 134 DBP (mmHg): 81 Stage: RECOVERY Duration (min): 1 min : 0 sec HR (bpm): 85 SBP (mmHg): 135 DBP (mmHg): 65 Stage: RECOVERY Duration (min): 2 min : 0 sec HR (bpm): 81 SBP (mmHg): 135 DBP (mmHg): 65 Stage: RECOVERY Duration (min): 3 min : 0 sec HR (bpm): 78 SBP (mmHg): 140 DBP (mmHg): 67 Stage: RECOVERY Duration (min): 4 min : 0 sec HR (bpm): 73 SBP (mmHg): 140 DBP (mmHg): 67 Stage: RECOVERY Duration (min): 4 min : 51 sec HR (bpm): 73 SBP (mmHg): 139 DBP (mmHg): 70 Rest HR: 64 bpm Peak HR: 87 bpm Rest Sys BP: 154 mmHg Peak Sys BP: 140 mmHg Max Pred HR: 149 bpm % Max Pred HR: 58 % Target HR: 127 bpm Max RPP: 12,180 bpm*mmHg Total Time: 1 min : 0 sec Rest Arnold BP: 80 mmHg Peak Arnold BP: 67 mmHg Total Dose: 0.4 mg Report Signatures
--- NOTE | 2024-11-26 02:28 | PCRCNOTE ---
Apnea link test was incomplete. Pt was too confused to complete the test. Pt took the equipment off several times and didn't go to sleep much during the time it was on. Test was on > 4 hrs and patient has a roommate.
[2024-11-26 04:24] LABS: Basophils Absolute Auto 0.1 K/mm3 (0.0-0.1); Basophils Percent Auto 0.8 % (0.2-1.2); Eosinophils Absolute Auto 0.3 K/mm3 (0-0.3); Hematocrit 36.9 % (42.0-52.0); Hemoglobin 12.6 g/dL (14.0-18.0); Immature Granulocyte Absolute 0.02 K/mm3 (0.00-0.031); Immature Granulocyte Percent A 0.2 % (0-0.5); Lymphocytes Absolute Auto 2.01 K/mm3 (0.9-3.2); Lymphocytes Percent Auto 23.5 % (18.3-44.2); Mean Corpuscular HGB Conc 34.1 g/dl (32-36); Mean Corpuscular Hemoglobin 34.1 pg (26-34); Mean Corpuscular Volume 99.7 fl (80-100); Monocytes Absolute Auto 1.1 K/mm3 (0.1-0.6); Monocytes Percent Auto 12.7 % (2.6-8.5); Neutrophils Percent Auto 58.8 % (45.5-73.1); Platelet Count Result 268 k/mm3 (150-375); Red Cell Distribution Width 12.1 % (11.5-14.5); White Blood Count 8.6 K/mm3 (4.5-10.0)
[2024-11-26 04:28] LABS: Anion Gap -3 mmol/L (4-12); Blood Urea Nitrogen 15 mg/dL (9-20); Carbon Dioxide 30 mmol/L (22-30); Chloride 106 mmol/L (98-107); Cholesterol 185 mg/dL (0-200); Estimated CRCL calculation 64 ml/min; Estimated Glomerular Filt Rate > 60; Glucose 94 mg/dL (65-110); HDL Direct 28 mg/dL; Potassium 3.7 mmol/L (3.4-5.0); Sodium 133 mmol/L (137-145); Triglycerides 106 mg/dL (<150)
[2024-11-26 04:30] LABS: Hemoglobin A1C 5.8 % (<5.7)
[2024-11-26 04:32] LABS: Ammonia < 9 umol/L (9-30)
[2024-11-26 04:39] LABS: LDL Cholesterol Direct 116 mg/dL
[2024-11-26] MEDS: cefTRIAXone 2 GM/NS 100 ML 2 GM/100 ML BAG IVPB (04:41)
[2024-11-26 11:32] LABS: Cortisol Random 7.37 ug/dL
[2024-11-26] MEDS: ENOXAPARIN 40 MG/0.4 ML SYRINGE SUB-Q (13:57)
--- NOTE | 2024-11-26 14:36 | PM.DS ---
DS: Admitting Diagnosis Discharge Date 11/26/24 Admitting Diagnosis Altered mental status DS: Discharge Diagnosis Discharge Diagnosis (1) Altered mental status: Code(s): R41.82 - Altered mental status, unspecified Status: Acute (2) Elevated troponin: Code(s): R79.89 - Other specified abnormal findings of blood chemistry Status: Acute (3) Dental abscess: Code(s): K04.7 - Periapical abscess without sinus Status: Acute (4) Tobacco abuse: Code(s): Z72.0 - Tobacco use Status: Acute DS: Summary Hospital Course Reason for hospitalization: 69yo male with no significant medical hx but with tobacco abuse here for altered mental status and ongoing dental infection. Please see H&P for details. Hospital Course: Patient presented with confusion. Head CT negative for acute process. UA negative for acute infection. PCT 0.1. TSH low at 0.24 but FT4 normal. B12 low end of normal. Ammonia <9. Folate normal. Vit D low as well. MMA ordered. Toxicology screen negative. Influenza, RSV and COVID PCR negative. MRI brain showing no acute findings but did show empty sella. BCx NGTD. Patient has a hx of confusion with infectionin the past so suspect confusion related to ongoing dental infection. Consider untreated GEORGIE with bradycardia at night. Apnea link ordered but not able to be performed prior to discharge. B12 and Vit D replaced. Troponin elevated to 0.43. EKG showing sinus rhythm with PVCs, LAD, LVH and possible old anterior NE. Repeat EKG showing similar findings. CXR showing subsegmental bibasilar atelectasis/consolidation and possible small left pleural effusion. Patient was given aspirin in the emergency room. Echo pending. Lexiscan stress test showing normal normal myocardial perfusion at rest and during stress. The EKG portion was pending. Patient was previously treated with antibiotics (Amox) for the dental infection prior to admission with improvement. He was started on IV Rocephin here. Patient will follow up with dentist for definitive treatment. Patient was educated about the benefits of smoking cessation. Patient overall did well and was able to be discharged home on 11/26/24. Status at Discharge Cognitive/behavioral status at discharge: stable Time Spent with Patient Time attestation: Total time spent providing and/or coordinating discharge services: 35 minutes Time spent: Greater than 30 minutes Exam Narrative: AF 97.7 138/61 82 26 90% ra Gen - NARD Chest - CTA bilaterally, nml RR CV - RRR S1/S2. Tele showing bradycardia at times but HR >45 Abd - Soft, NT/ND, Positive BS Ext - No pedal edema Psych - Nml mood and affect Skin - Warm and dry DS: Data Data Completed and Pending Labs on day of discharge: Labs from last 24 hours 11/26/24 11/26/24 11/25/24 03:46 03:43 08:42 WBC 8.6 RBC 3.70 L Hgb 12.6 L Hct 36.9 L MCV 99.7 MCH 34.1 H MCHC 34.1 RDW 12.1 Plt Count 268 MPV 10.0 Immature Gran % (Auto) 0.2 Neut % (Auto) 58.8 Lymph % (Auto) 23.5 Josephine % (Auto) 12.7 H Eos % (Auto) 4.0 Baso % (Auto) 0.8 Lymph # (Auto) 2.01 Josephine # (Auto) 1.1 H Eos # (Auto) 0.3 Baso # (Auto) 0.1 Abs Immat Gran (auto) 0.02 Absolute Neuts (auto) 5.0 Absolute Nucleated RBC 0.000 Nucleated RBC % 0.0 Sodium 133 L Potassium 3.7 Chloride 106 Carbon Dioxide 30 Anion Gap -3 L BUN 15 Creatinine 0.90 Estim Creat Clear Calc 64 Estimated GFR > 60 Glucose 94 Hemoglobin A1c 5.8 H Calcium 9.0 Ammonia < 9 L Triglycerides 106 Cholesterol 185 LDL Cholesterol Direct 116 HDL Direct 28 Methylmalonic Acid Pending Random Cortisol 7.37 Discharge Plan Discharge Attending physician on discharge: Juancho Bullard Discharging Clinician: Juancho Bullard Anticipated Discharge Date/Time: 11/26/24 14:47 Patient Disposition: Home, Self-Care Activity: as tolerated Diet: heart healthy Discharge Instructions: Please complete your antibiotic course even if you are starting to feel well. Take precautions to avoid falls. Contact your doctor or call 911 and come to the Emergency Room if you have fevers, recurrent confusion or other worrisome symptoms. Avoid NSAIDs (ibuprofen, naproxen, Aleve). Tylenol is safe to take. Follow-up with your primary care provider in 1-2 weeks. Please call for appointment. Talk with your health care provider about having a sleep study as we discussed. Follow-up with your dentist as previously scheduled. Thank you for using [facility] for your health care needs. Patient Instructions: Antibiotic Form, Enoxaparin (By injection), High Troponin Levels (GEN) Patient Language: Emirati Stand Alone Forms: General Discharge Information Follow-up/Referrals: UNKNOWN,DOCTOR [Primary Care Provider] - Discharge Medications: New cyanocobalamin (vitamin B-12) [Vitamin B-12] 1,000 mcg Tablet 1,000 mcg PO QAM Qty: 30 0RF cholecalciferol (vitamin D3) [Vitamin D3] 25 mcg (1,000 unit) Tablet 1,000 unit PO DAILY Qty: 30 0RF Continued amoxicillin 875 mg tablet 875 mg PO Q12H acetaminophen [Arthritis Pain Relief (acetam)] 650 mg tablet extended release 650 mg PO DAILY One-A-Day Men's 50Plus(ginkgo) 400-300-120 mcg-mcg-mg tablet 1 tablet PO DAILY Discontinued naproxen sodium 550 mg tablet 550 mg PO Q12H PRN (Reason: pain) Date of admission: 11/25/24 16:12 Primary Care Provider: UNKNOWN,DOCTOR Admitting Provider: Adam Noel Attending physician on admission: Adam Noel Condition: Stable Hospitalist MIPS Heart Failure (Exclusion) Patient has history of Heart Transplant or Left Ventricular Assistive Device?: No IF YES, STOP HERE Heart Failure (Qualifier) Patient has current or prior documentation of LVEF less than or equal to 40%, or mod/servere depressed LVSF?: No IF NO, STOP HERE
[2024-11-28 14:17] LABS: Methylmalonic Acid 134 nmol/L (69-390)
== END 2024-11-26 16:10 | disposition home or self-care (01) | DRG 948 ==
LOC: ANHED 15:23 → ANHIMU 17:35
PROVIDERS: Nurse Practitioner Gerontology; Physician Assistant; Admitting Provider Internal Medicine; Emergency Provider Emergency Medicine; Visit Provider Internal Medicine
DX: R41.82 Altered mental status, unspecified (principal); K04.7 Periapical abscess without sinus; R29.6 Repeated falls; S01.01XA Laceration without foreign body of scalp, initial encounter; R79.89 Other specified abnormal findings of blood chemistry; F17.210 Nicotine dependence, cigarettes, uncomplicated; Z20.822 Contact with and (suspected) exposure to COVID-19
CPT/HCPCS: 36415; 70450; 70551; 71045; 72125; 78452; 80048; 80053; 80061; 80307; 81001; 82140; 82306; 82533; 82550; 82607; 82746; 83036; 83921; 84145; 84439; 84443; 84484; 85025; 85610; 85730; 86140; 87040; 87637; 93005; 93017; 96361; 96365; 96372; 96374; 99285; A9270; A9502; G0378; J0696; J1650; J2785; J3420; J7030; J7120

== ENCOUNTER 2024-12-16 09:11 | Outpatient (CLI) | payer MEDICARE, SELFPAY ==
--- NOTE | ~2024-12-16 | CT_ITS ---
CT Scan of the Chest without Contrast: Clinical Indication: Tobacco use Technique: Contiguous sections were acquired throughout the chest without intravenous contrast. Dose reduction technique was used on this scan by utilizing automated exposure control and iterative recon struction technique. The dose-length product (DLP) was 132.37 mGy-cm. Findings: Probable small cystic mass in the anterior mediastinum. No definite mediastinal lymphadenopathy seen. The mediastinal soft tissues otherwise appear normal. There is no evidence of pleural or pericardial effusion. There is mild emphysema and minimal associated peripheral chronic interstitial change. No suspicious pulmonary nodule seen. Images through the upper abdomen reveal 1.7 cm calcified gallstone the gallbladder neck. No definite evidence for acute cholecystitis.. Impression: Mild emphysema and peripheral chronic interstitial change. No suspicious pulmonary nodule. Cholelithiasis. Probable small cystic mass in the anterior mediastinum. Consider follow-up exam as indicated. Reviewed, dictated and finalized at [facility]. CUTTER Impression: Mild emphysema and peripheral chronic interstitial change. No suspicious pulmonary nodule. Cholelithiasis. Probable small cystic mass in the anterior mediastinum. Consider follow-up exam as indicated.
--- OUTSIDE RECORDS SUMMARY | 2024-12-17 22:21 | XMS_ITS | Patient Health Summary ---
Author Organization [facility] Address [address] [place] [address] Care Team Providers Care Fugitive Detective Name Role Phone Unavailable Primary Care Provider Unavailabl e Note from [facility],non-owned Affiliates and Associated Physician Practices is amultiple site organization consisting of ambulatory clinics and hospital sitesin [place], [place], [place] and [place]. This disclosure is being madepursuant to the Care Everywhere program and may not contain all information available regarding this patient. Last updated 18.[facility] Immunizations * TDAP (7yrs+)(Given 02/29/2020) Social History Tobacco Use Types Packs/Day Years Used Date Smoking Tobacco: Never Assessed Sex and Gender Information Value Date Recorded Sex Assigned at Not on file Gender Identity Not on file Sexual Orientation Not on file
--- OUTSIDE RECORDS SUMMARY | 2024-12-17 22:21 | XMS_ITS | Clinical Summary ---
Author Organization [facility] Address [address] [place] [address] Care Team Providers Care Chief Credit Officer Name Role Phone Unavailable Primary Care Provider Unavailabl e Source Comments [facility],non-owned Affiliates and Associated Physician Practices is amultiple site organization consisting of ambulatory clinics and hospital sitesin [place], [place], [place]. This disclosure is being madepursuant to the Care Everywhere program and may not contain all information available regarding this patient. Last updated 18.[facility] Immunizations Name Administration Dates Next Due TDAP (7yrs+) 02/29/2020 Social History Tobacco Use Types Packs/Day Years Used Date Smoking Tobacco: Never Assessed Sex and Gender Information Value Date Recorded Sex Assigned at Not on file Gender Identity Not on file Sexual Orientation Not on file Plan of Treatment Health Maintenance Due Date Last Done Comments COLOGUARD (AGES 45-75) - COL ON CA SCREENING 1953 COLON MONITORING 1953 COLONOSCOPY - COLON CA SCREENING 1953 CT COLONOGRAPHY - COLON CA SCREENING 1953 Colorectal Cancer Screening 1953 FIT - COLON CA SCREENING 1953 FLEX SIG - COLON CA SCREENING 1953 LIPID TESTING 1953 MEDICARE AWV ? 12 MONTHS 1953 HEPATITIS C SCREENING 05/18/1971 PNEUMOCOCCAL VACCINE 50+ (1 of 1 - PCV) 2003 ZOSTER VACCINE (1 of 2) 2003 COVID-19 VACCINE ( - 2023-2 5 season) 2024 INFLUENZA VACCINE (#1) 2024 DEPRESSION SCREENING 11/25/2024 Respiratory Syncytial Virus (RSV) Vaccine Pt: or over 60 yrs (1 - 1-dose 75+ series) 2028 DTAP/TDAP/TD VACCINES (2 - T d or Tdap) 02/28/2030 02/29/2020 HEPATITIS B VACCINE Aged Out No longe r eligible based on patient's age to complete this topic HIB VACCINE Aged Out No longer eligi ble based on patient's age to complete this topic HPV VACCINE Aged Out No longer eligi ble based on patient's age to complete this topic MENINGOCOCCAL (Group B) VACCINE Aged Out No longer eligible based on patient's age to complete this topic MENINGOCOCCAL VACCINE Aged Out No robin paco eligible based on patient's age to complete this topic
--- OUTSIDE RECORDS SUMMARY | 2024-12-17 22:21 | XMS_ITS | Referral Summary ---
Author Organization [facility] Address [address] [place] [address] Care Team Providers Care Road Engineer Freight Name Role Phone Unavailable Primary Care Provider Unavailabl e Source Comments [facility],non-owned Affiliates and Associated Physician Practices is amultiple site organization consisting of ambulatory clinics and hospital sitesin [place], [place], [place] and [place]. This disclosure is being madepursuant to the Care Everywhere program and may not contain all information available regarding this patient. Last updated 18.[facility] Immunizations Name Administration Dates Next Due TDAP (7yrs+) 02/29/2020 Social History Tobacco Use Types Packs/Day Years Used Date Smoking Tobacco: Never Assessed Sex and Gender Information Value Date Recorded Sex Assigned at Not on file Gender Identity Not on file Sexual Orientation Not on file Plan of Treatment Not on file
== END 2024-12-16 09:12 | disposition home or self-care (01) ==
PROVIDERS: Visit Provider Family Medicine
DX: Z12.2 Encounter for screening for malignant neoplasm of respiratory organs (principal); J43.9 Emphysema, unspecified; K80.20 Calculus of gallbladder without cholecystitis without obstruction; Z87.891 Personal history of nicotine dependence
CPT/HCPCS: 71250

== ENCOUNTER 2025-03-10 00:05 | Day surgery (SDC) | payer MEDICARE, SELFPAY ==
[2025-03-02 13:31] VITALS: BMI 29.0
--- OUTSIDE RECORDS SUMMARY | 2025-03-10 00:07 | XMS_ITS | Clinical Summary ---
Author Organization [facility] Address [address] [place] [address] Care Team Providers Care Extractor And Wringer Operator Name Role Phone Unavailable Primary Care Provider Unavailabl e Source Comments [facility],non-owned Affiliates and Associated Physician Practices is amultiple site organization consisting of ambulatory clinics and hospital sitesin [place], [place], [place] and [place]. This disclosure is being madepursuant to the Care Everywhere program and may not contain all information available regarding this patient. Last updated 18.[facility] Immunizations Immunization Administration Dates Next Due TDAP (7yrs+) 02/29/2020 Social History Tobacco Use Types Packs/Day Years Used Date Smoking Tobacco: Never Assessed Sex and Gender Information Value Date Recorded Sex Assigned at Not on file Legal Sex Male 12:27 PM CDT Gender Identity Not on file Sexual Orientation [...] SCREENING 1953 LIPID TESTING 1953 MEDICARE AWV 12 MONTHS 1953 HEPATITIS C SCREENING 05/18/1971 PNEUMOCOCCAL VACCINE 50+ (1 of 1 - PCV) 2003 ZOSTER VACCINE (1 of 2) 2003 COVID-19 VACCINE ( - 2023-2 5 season) 2024 DEPRESSION SCREENING 11/25/2024 INFLUENZA VACCINE (Season Ended) 2025 Respiratory Syncytial Virus (RSV) Vaccine Pt: or [...] to complete this topic MENINGOCOCCAL (Group B) VACC INE SHARED DECISION-MAKING Aged Out No longer eligibl e based on patient's age to complete this topic MENINGOCOCCAL GROUPS A/C/Y/W VACCINE Aged Out No longer eligible b ased on patient's age to complete this topic Insurance [employer] MEDICARE
[2025-03-10 08:15] VITALS: BP 141/80; PULSE 67; TEMP 36.3; O2SAT 97; BMI 29.9
[2025-03-10] MEDS: LACTATED RINGERS 1,000 ML 150 ML IV CONT (08:18)
--- NOTE | 2025-03-10 09:07 | P.PNAN_ITS ---
Anes - Initial Pre Proc Eval Procedure: Operation Date: 03/10/25 09:30 Proposed Procedures p Screening Colonoscopy - Galdino Carvajal MD Date/Time: 03/10/25 09:07 Surgeon: Galdino Carvajal MD Pre Op Diagnosis: screening colon Patient Data Age: 69 Gender: M Height: 1.7 m Weight: 86.8 kg Last Vital Signs Temp 36.3 C L 03/10/25 08:15 Pulse 67 03/10/25 08:15 BP 141/80 H 03/10/25 08:15 Pulse Ox 97 03/10/25 08:15 O2 Del Method Room Air 03/10/25 08:15 Allergies Allergy/AdvReac Type Severity Reaction Status Date / Time No Known Allergies Allergy Verified 03/10/25 08:13 Home Medications ?Medication ?Instructions ?Recorded ?Confirmed ?Type acetaminophen 650 mg 650 mg PO DAILY 11/25/24 03/10/25 History tablet,extended release (Arthritis Pain Relief (acetaminophen) ER) zlcogytu-yddp-xsjmt acid 400 1 tablet PO DAILY 11/25/24 03/10/25 History mcg-lycopene 300 mcg-ginkgo 120 mg tablet (One-A-Day Men's 50 Plus (with ginkgo)) cholecalciferol (vitamin D3) 25 1,000 unit PO DAILY #30 tabs 11/26/24 03/10/25 Rx mcg (1,000 unit) tablet (Vitamin D3) cyanocobalamin (vitamin B-12) 1,000 mcg PO QAM #30 tabs 11/26/24 03/10/25 Rx 1,000 mcg tablet (Vitamin B-12) Patient hx anesthesia problems: none Family hx anesthesia problems: none Results Review: All pre-operative results and documents have been reviewed as part of the pre- operative evaluation. [facility] Past Medical History Medical History Healthy adult male Surgical History Surgical History No history of previous surgery Family History Family History Mother Lung cancer Father Congestive heart failure Social History Social History Smoking packs per day: 1 Smoking cigarettes per day: 20.0 Years smoked: 50 Smoking pack-years: 50.00 Smoking status: Former smoker Tobacco type: cigarettes Alcohol intake: never Substance use: never Substance use type: does not use Do You Feel Safe in your Home?: Yes Lack of Transportation: No Lack of Food: Never True Current Housing: I Have Housing Concerned About Future Housing: No Difficulty Paying Gas/Electric Bills: No Difficulty Paying for Meds: No Currently Unemployed: No Education: Associate Degree Difficulty w/ Childcare or Family Care: No Living arrangements: with family Spiritual care concerns: No Anes - Eval Final PreProcedure Day of Procedure 03/10/25 09:07 Patient weight: overweight Heart: regular rate and rhythm Lungs: clear to auscultation Airway: Mallampati scale class II Neurological: alert and oriented Last oral intake: >/= 8 hours ASA classification: II Emergent: no Anesthetic plan: proceed Anesthesia type and monitoring: general GIVS and standard monitoring Results Review: All pre-operative results and documents have been reviewed as part of the pre- operative evaluation. Informed Consent: The patient's anesthetic plan and its attendant risks and benefits were discussed with the patient/family/POA. Questions were solicited and answers provided to the satisfaction of the patient/family/POA.
--- NOTE | 2025-03-10 09:12 | PM.HPGS ---
History of Present Illness History of Present Illness Consent: Risks, benefits, and alternatives have been discussed and questions answered. Patient agrees to proceed with procedure. Chief complaint: screening colon Narrative: Daron Martinez is a 69 year old male here for first screening colonoscopy Review of Systems Review of Systems: All systems reviewed & are unremarkable except as noted in HPI and below PMFSH Past Medical History Medical History (Updated 03/10/25 @ 09:15 by Galdino Carvajal MD) Colon cancer screening Healthy adult male Surgical History Surgical History No history of previous surgery Family History Family History Mother Lung cancer Father Congestive heart failure Social History Social History Smoking packs per day: 1 Smoking cigarettes per day: 20.0 Years smoked: 50 Smoking pack-years: 50.00 Smoking status: Former smoker Tobacco type: cigarettes Alcohol intake: never Substance use: never Substance use type: does not use Do You Feel Safe in your Home?: Yes Lack of Transportation: No Lack of Food: Never True Current Housing: I Have Housing Concerned About Future Housing: No Difficulty Paying Gas/Electric Bills: No Difficulty Paying for Meds: No Currently Unemployed: No Education: Associate Degree Difficulty w/ Childcare or Family Care: No Living arrangements: with family Spiritual care concerns: No Meds Home Medications and Allergies Home Medications ?Medication ?Instructions ?Recorded ?Confirmed ?Type acetaminophen 650 mg 650 mg PO DAILY 11/25/24 03/10/25 History tablet,extended release (Arthritis Pain Relief (acetaminophen) ER) tqaryebl-lmgi-kgtpg acid 400 1 tablet PO DAILY 11/25/24 03/10/25 History mcg-lycopene 300 mcg-ginkgo 120 mg tablet (One-A-Day Men's 50 Plus (with ginkgo)) cholecalciferol (vitamin D3) 25 1,000 unit PO DAILY #30 tabs 11/26/24 03/10/25 Rx mcg (1,000 unit) tablet (Vitamin D3) cyanocobalamin (vitamin B-12) 1,000 mcg PO QAM #30 tabs 01/02/25 04/16/25 Rx 1,000 mcg tablet (Vitamin B-12) Allergies Allergy/AdvReac Type Severity Reaction Status Date / Time No Known Allergies Allergy Verified 03/10/25 08:13 Vital Signs Vital Signs - 24 hr 03/10/25 08:15 Temperature 97.4 F L Pulse Rate 67 Blood Pressure 141/80 H Pulse Oximetry 97 Oxygen Delivery Room Air Exam Const: General: comfortable and no acute distress HENMT: Face/Nose/Sinus: Normal nares present Eyes: General: appearance normal, both eyes and all related structures Neck: Neck: no JVD Resp: Auscultation: clear to auscultation bilaterally Cardio: Rate: regular rate Rhythm: regular rhythm GI: Inspection: non-distended GI Palp: Yes Soft to palpation Skin: General skin exam: normal color Neuro: General: gait normal Speech: normal speech Extrem: General: normal to inspection Psych: Mental Status: mental status grossly normal Assessment and Plan Assessment and plan (1) Colon cancer screening: Code(s): Z12.11 - Encounter for screening for malignant neoplasm of colon Status: Acute Assessment and Plan: colonoscopy
[2025-03-10 09:35] VITALS: BP 134/100; PULSE 61; RESP 19; O2SAT 97
[2025-03-10 09:45] VITALS: BP 120/51; PULSE 61; RESP 22; O2SAT 96
[2025-03-10 09:55] VITALS: BP 120/59; PULSE 60; RESP 19; O2SAT 98
== END 2025-03-10 10:05 | disposition home or self-care (01) ==
PROVIDERS: PCP Family Medicine; Referring Provider Family Medicine; Visit Provider Internal Medicine Gastroenterology
PROC: 0DJD8ZZ Inspection of Lower Intestinal Tract, Via Natural or Artificial Opening Endoscopic (ICD-10-PCS; CPT 45378; principal; 2025-03-10 09:30)
DX: Z12.11 Encounter for screening for malignant neoplasm of colon (principal); D12.3 Benign neoplasm of transverse colon; K64.8 Other hemorrhoids; Z87.891 Personal history of nicotine dependence; Z80.1 Family history of malignant neoplasm of trachea, bronchus and lung; Z82.49 Family history of ischemic heart disease and other diseases of the circulatory system
CPT/HCPCS: 45385; 88305; J2704; J7120

== ENCOUNTER 2025-10-19 13:02 | Outpatient (CLI) | payer MEDICARE, SELFPAY ==
--- NOTE | ~2025-10-19 | XR_ITS ---
EXAMINATION: XR chest 2V 10/19/2025 13:57 INDICATION: Right shoulder pain. Dyspnea with exertion. PROCEDURE: 2 view chest COMPARISON: CT dated 12/16/2024 FINDINGS: The lungs are clear. The cardiomediastinal silhouette is within normal limits. There are no pleural effusions. There is no pneumothorax suspected. IMPRESSION: 1: NO ACUTE CARDIOPULMONARY DISEASE. Reviewed, dictated and finalized at location O. OTECHNICIAN
--- NOTE | ~2025-10-19 | XR_ITS ---
EXAMINATION: XR shoulder RT min 2V, 10/19/2025 13:50 ROSE GROWER HISTORY: Right shoulder pain;Dyspnea on exertion COMPARISON: No comparisons available. Findings: No acute fracture or malalignment. No significant degenerative changes. Soft tissues unremarkable. Impression: No acute fracture or malalignment. Reviewed, dictated and finalized at location P. GROWER Impression: No acute fracture or malalignment.
[2025-10-19 13:48] LABS: Hematocrit 40.2 % (42.0-52.0); Hemoglobin 13.6 g/dL (14.0-18.0); Immature Granulocyte Percent A 0.3 % (0-0.5); Lymphocytes Absolute Auto 1.98 K/mm3 (0.9-3.2); Mean Corpuscular HGB Conc 33.8 g/dl (32-36); Mean Corpuscular Hemoglobin 33.6 pg (26-34); Mean Corpuscular Volume 99.3 fl (80-100); Nucleated Red Blood Cells Absolute Auto 0.000 K/mm3 (0.0-0.012); Nucleated Red Blood Cells Perc 0.0 % (0.0-0.2); Platelet Count Result 413 k/mm3 (150-375); Red Blood Count 4.05 M/mm3 (4.6-6.20); White Blood Count 9.5 K/mm3 (4.5-10.0)
[2025-10-19 14:03] LABS: Alanine Aminotransferase 21 U/L (6-50); Albumin Level 4.4 g/dL (3.5-5.1); Alkaline Phosphatase 66 U/L (38-126); Anion Gap 9 mmol/L (4-12); Aspartate Amino Transferase 23 U/L (17-59); Bilirubin,Total 0.5 mg/dL (0.2-1.3); Blood Urea Nitrogen 13 mg/dL (9-20); Calcium 9.6 mg/dL (8.4-10.2); Carbon Dioxide 29 mmol/L (22-30); Chloride 103 mmol/L (98-107); Estimated Glomerular Filt Rate > 60; Glucose 108 mg/dL (65-110); Potassium 3.5 mmol/L (3.4-5.0); Sodium 141 mmol/L (137-145); Total Protein 7.9 g/dL (6.3-8.2)
[2025-10-19 14:10] LABS: NT Pro B Type Natriuretic Pept 171 pg/mL (19.9-100)
[2025-10-19 14:21] LABS: Free T4 Free Thyroxine 1.13 ng/dL (0.78-2.19)
[2025-10-19 14:34] LABS: Thyroid Stimulating Hormone Reflex 1.080 uIU/mL (0.465-4.68)
--- OUTSIDE RECORDS SUMMARY | 2025-10-19 14:43 | XMS_ITS | Clinical Summary ---
Author Organization [facility] Address [address] [place] [address] Care Team Providers Care Paint Grinder Stone Mill Name Role Phone Unavailable Primary Care Provider Unavailabl e Source Comments [facility],non-owned Affiliates and Associated Physician Practices is amultiple site organization consisting of ambulatory clinics and hospital sitesin [place], [place], [place] and [place]. This disclosure is being madepursuant to the Care Everywhere program and may not contain all information available regarding this patient. Last updated 18.[facility] Immunizations Immunization Administration Dates Next Due TDAP [...] 2003 ZOSTER VACCINE (1 of 2) 2003 DEPRESSION SCREENING 11/25/2024 COVID-19 VACCINE ( - 2024-2 6 season) 2025 INFLUENZA VACCINE (#1) 2025 Respiratory Syncytial Virus (RSV) Vaccine Pt: [...] patient's age to complete this topic Insurance MEDICARE [facility] MANAGED MEDICARE ADV SELF PAY NO INSURANCE Member Subscriber Plan / Payer (Ef fective for All Dates) Name:Daron Martinez Member ID:Not on file Relation to Subscriber:Not on file Name:DARON MARTINEZ Subscriber ID:Not on file (Home) Address: [address] [place] [address] Payer ID:Not on file Group ID:Not on file Type:Self Pay Address: [place], [place] MEDICARE
[2025-10-19 14:51] LABS: Vitamin B12 929.0 pg/mL (239-931)
== END 2025-10-19 13:03 | disposition home or self-care (01) ==
PROVIDERS: PCP Family Medicine; Visit Provider Physician Assistant
DX: R06.09 Other forms of dyspnea (principal); R53.83 Other fatigue; M25.511 Pain in right shoulder; E55.9 Vitamin D deficiency, unspecified
CPT/HCPCS: 36415; 71046; 73030; 80053; 82306; 82607; 83880; 84439; 84443; 85025; 85380

== ENCOUNTER 2025-10-20 10:48 | Outpatient (CLI) | payer MEDICARE, SELFPAY ==
--- NOTE | ~2025-10-20 | CT_ITS ---
CTA CHEST CLINICAL HISTORY: ELEVATED D-DIMER . COMPARISON: Chest x-rays from prior TECHNIQUE: Helical CTA performed from thoracic inlet to upper abdomen IV contrast information not listed in PACS Coronal, sagittal reformats. Multiplanar MIPS CT images acquired with automatic exposure control for dose reduction DLP: 721 mGy-cm FINDINGS: Pulmonary arteries: No PE. Thoracic Aorta: No dissection or aneurysm. Heart/pericardium: Unremarkable. RV/LV ratio: Normal. Lungs/Pleura: Emphysema. Tracheobronchial tree: Patent. Nodes: No enlarged nodes. Bones: No acute bony abnormality. Soft tissues: Unremarkable. Visualized upper abdomen: Gallstone. IMPRESSION: 1. No PE or other acute cardiopulmonary findings. Reviewed, dictated and finalized at location R. [facility] [employer]
--- OUTSIDE RECORDS SUMMARY | 2025-10-20 11:39 | XMS_ITS | Clinical Summary ---
Author Organization [facility] Address [address] [place] [address] Care Team Providers Care Wallpaper Printer Name Role Phone Unavailable Primary Care Provider Unavailabl e Source Comments [facility],non-owned Affiliates and Associated Physician Practices is amultiple site organization consisting of ambulatory clinics and hospital sitesin [place], [place], [place] and [place]. This disclosure is being madepursuant to the Care Everywhere program and may not contain all information available regarding this patient. Last updated 18.[facility] [employer] Immunizations Immunization Administration Dates Next Due TDAP [...] age to complete this topic Insurance MEDICARE [facility] MANAGED MEDICARE ADV SELF PAY NO INSURANCE Member Subscriber Plan / Payer (Ef fective for All Dates) Name:Daron Martinez Member ID:Not on file Relation to Subscriber:Not on file Name:DARON MARTINEZ Subscriber ID:Not on file (Home) Address: [address] [place] [address] Payer ID:Not on file Group ID:Not on file Type:Self Pay Address: [place], [place] MEDICARE
== END 2025-10-20 10:49 | disposition home or self-care (01) ==
PROVIDERS: PCP Family Medicine; Visit Provider Physician Assistant
DX: R79.89 Other specified abnormal findings of blood chemistry (principal)
CPT/HCPCS: 71275; Q9967

== ENCOUNTER 2025-10-27 10:22 | Outpatient (CLI) | payer MEDICARE, SELFPAY ==
[2025-10-27 11:02] LABS: Hematocrit 37.7 % (42.0-52.0); Hemoglobin 12.4 g/dL (14.0-18.0); Immature Granulocyte Percent A 0.3 % (0-0.5); Immature Reticulocyte Fraction 10.1 % (3.0-15.9); Lymphocytes Absolute Auto 1.91 K/mm3 (0.9-3.2); Mean Corpuscular HGB Conc 32.9 g/dl (32-36); Mean Corpuscular Hemoglobin 33.0 pg (26-34); Mean Corpuscular Volume 100.3 fl (80-100); Nucleated Red Blood Cells Absolute Auto 0.000 K/mm3 (0.0-0.012); Nucleated Red Blood Cells Perc 0.0 % (0.0-0.2); Platelet Count Result 343 k/mm3 (150-375); Red Blood Count 3.76 M/mm3 (4.6-6.20); Reticulocyte Hemoglobin Conten 36.8 pg (28.2-36.6); Reticulocytes Absolute 0.04 10^6/uL (0.02-0.10); White Blood Count 6.4 K/mm3 (4.5-10.0)
[2025-10-27 11:24] LABS: Iron 107 ug/dL (49-181)
[2025-10-27 11:34] LABS: Percent Iron Saturation 41 % (20-50)
--- OUTSIDE RECORDS SUMMARY | 2025-10-27 11:46 | XMS_ITS | Clinical Summary ---
Author Organization [facility] Address [address] [place] [address] Care Team Providers Care Top Carrier Name Role Phone Unavailable Primary Care Provider Unavailabl e Source Comments [facility],non-owned Affiliates and Associated Physician Practices is amultiple site organization consisting of ambulatory clinics and hospital sitesin [place], [place], [place] and [place]. This disclosure is being madepursuant to the Care Everywhere program and may not contain all information available regarding this patient. Last updated 18.[facility] Givit Immunizations Immunization Administration Dates Next Due TDAP [...] age to complete this topic Insurance MEDICARE [facility] MANAGED MEDICARE ADV SELF PAY NO INSURANCE Member Subscriber Plan / Payer (Ef fective for All Dates) Name:Daron Matrinez Member ID:Not on file Relation to Subscriber:Not on file Name:DARON MARTINEZ Subscriber ID:Not on file (Home) Address: [address] [place] [address] Payer ID:Not on file Group ID:Not on file Type:Self Pay Address: [place], [place] MEDICARE
[2025-10-27 12:05] LABS: Ferritin 99.40 ng/mL (11.1-264)
[2025-10-27 12:38] LABS: Vitamin B12 990.0 pg/mL (239-931)
== END 2025-10-27 10:23 | disposition home or self-care (01) ==
PROVIDERS: PCP Family Medicine; Visit Provider Physician Assistant
DX: D64.9 Anemia, unspecified (principal)
CPT/HCPCS: 36415; 82607; 82728; 82746; 83540; 83550; 85025; 85046

== ENCOUNTER 2025-11-04 09:37 | Outpatient (CLI) | payer MEDICARE, SELFPAY ==
--- NOTE | 2025-11-04 | CONSULT_PTH ---
PATIENT: Daron Martinez LOC: [facility] #:[id number] AGE/SX: 70/M ROOM: RE11/04/[address]: Celine Desir, ROBERTO : 1955 BED: DIS: 11/04/2025 SPEC #: [id number] RECD: 11/04/25 10:13 STATUS: CAROLYN REIrwin #: [id number] OLINDA: 11/04/25 00:[address]: Karlee,Celine Rene DEPT: [facility] Consult RECD BY: Nette Burns MLT, ([facility]) ENTERED: 11/04/25 10:15 SP TYPE: Consult OTHR DR: Alessandro Santamaria M.D. Tissues: A - Peripheral Smear Procedures: Hematology Consult
[2025-11-04 10:08] LABS: Hematocrit 39.8 % (42.0-52.0); Hemoglobin 13.4 g/dL (14.0-18.0); Immature Granulocyte Percent A 0.2 % (0-0.5); Lymphocytes Absolute Auto 1.80 K/mm3 (0.9-3.2); Mean Corpuscular HGB Conc 33.7 g/dl (32-36); Mean Corpuscular Hemoglobin 33.7 pg (26-34); Mean Corpuscular Volume 100.0 fl (80-100); Nucleated Red Blood Cells Absolute Auto 0.000 K/mm3 (0.0-0.012); Nucleated Red Blood Cells Perc 0.0 % (0.0-0.2); Platelet Count Result 262 k/mm3 (150-375); Red Blood Count 3.98 M/mm3 (4.6-6.20); White Blood Count 5.7 K/mm3 (4.5-10.0)
[2025-11-04 11:42] LABS: Vitamin B12 875.0 pg/mL (239-931)
== END 2025-11-04 09:38 | disposition home or self-care (01) ==
PROVIDERS: PCP Family Medicine; Visit Provider Physician Assistant
DX: D64.9 Anemia, unspecified (principal); R79.89 Other specified abnormal findings of blood chemistry
CPT/HCPCS: 36415; 82607; 82746; 85025